=== PATIENT | male | born 1960 | race Caucasian/White ===

== ENCOUNTER 2020-05-01 13:46 | Inpatient (IN) | payer MEDICARE, MEDICAID, SELFPAY ==
[2020-05-01] VITALS (20 sets, daily range): BP systolic 91–237; BP diastolic 65–102; PULSE 67–105; RESP 18–26; TEMP 36.7–37.3; O2SAT 38–99; BMI 33.0; BMI 39.7
--- NOTE | ~2020-05-01 | XR_ITS ---
EXAMINATION: XR CHEST CLINICAL INFORMATION: Hypoxemia COMPARISON: Chest radiographs 05/01/[address] chest 05/02/2020 TECHNIQUE: Portable upright AP x2 views of the chest are obtained. FINDINGS: ET tube is 6 cm above grupo. NG tube is in the gastric fundus. There is bipolar pacemaker. Mild cardiopericardial enlargement is stable. The vascularity is markedly improved from prior chest radiograph 05/01/2020. Superimposed airspace opacities lower zones are also decreased. No significant effusion appreciated. No pneumothorax or pneumomediastinum. XR/XR chest 1V IMPRESSION: 1. ET tube 6 cm above grupo. NG tube in abdomen. 2. Interval moderate decrease in both vascular congestion and pulmonary opacities when compared with prior exam 05/01/2020.
--- NOTE | ~2020-05-01 | CT_ITS ---
EXAMINATION: CT CHEST, ABDOMEN AND PELVIS WITHOUT CONTRAST CLINICAL INFORMATION: Abdominal distention and respiratory failure COMPARISON: Chest radiograph earlier today TECHNIQUE: Multidetector volumetric imaging was performed from the thoracic inlet through the pubic symphysis without IV contrast. Sagittal and coronal reformatted images were obtained on the technologist's workstation. This CT examination was performed using dose optimization techniques as appropriate, variously including the following: *Automated exposure control *Adjustment of mA and/or kV according to patient size (this includes techniques or standardized protocols for targeted exams where dose is matched to indication/reason for exam; i.e. extremities or head) *Use of iterative reconstruction technique DLP: 2283 mGy-cm FINDINGS: CHEST: Lungs and Pleura: Bilateral pleural effusions are present along with bilateral lower lobe collapse/consolidation. Aerated upper lobes appear relatively unremarkable with some mild increased groundglass change which may be secondary to some edema. Mediastinum: The ET tube is in place about 5 cm above the grupo. An NG tube has its tip at the GE junction and should probably be advanced. No significant pericardial effusion is present. A dual lead pacer/defibrillator is present. Chest Wall/Axilla: Unremarkable ABDOMEN/PELVIS: Peritoneal Space: No significant free air or free fluid identified. Liver, Gallbladder, Biliary Tree: The liver is normal in size, shape, and attenuation. No focal hepatic lesion or biliary ductal dilatation is present. The gallbladder is unremarkable with no evidence of radiopaque gallstones, gallbladder wall thickening, or obvious pericholecystic inflammatory changes. Pancreas: Unremarkable Spleen: Unremarkable Adrenal Glands: Unremarkable Kidneys and Ureters: The kidneys are normal in size, shape, and attenuation. No hydronephrosis, hydroureter, or calculi seen. No perinephric stranding. Bladder: Starks catheter is present in the bladder. Gastrointestinal Tract: The small and large bowel are unremarkable. The appendix is unremarkable. Abdominal Wall: No significant hernia is appreciated. Lymph Nodes: No retroperitoneal lymphadenopathy is seen. Vascular: Atherosclerotic changes are present in the aorta and iliofemoral vessels with calcified plaque.. The IVC appears unremarkable. PELVIC VISCERA: Seminal vesicles and prostate appear normal. OSSEUS STRUCTURES: Degenerative changes are present throughout the spine no bony destructive lesions are seen. CT/CT abdomen pelvis wo con IMPRESSION: 1. Bilateral lower lobe collapse and moderate size pleural effusions. Some element of CHF may be present with some groundglass change representing edema. 2. No acute abnormality is seen in the abdomen. 3. ET tube present 5 cm above the grupo. The NG tube is at the GE junction and should be advanced.
--- NOTE | ~2020-05-01 | CT_ITS ---
EXAMINATION: CT ANGIOGRAM OF THE CHEST WITH AND WITHOUT CONTRAST (CT PULMONARY ANGIOGRAM FOR PE) CLINICAL INFORMATION: Reason for Exam rule out pe COMPARISON: 05/02/2020 TECHNIQUE: Prior to contrast administration, noncontrast localization images were obtained. Subsequently, multidetector volumetric imaging was performed from the thoracic inlet to below the diaphragms following the administration of 65 mL Omnipaque 350 intravenous contrast. No contrast reaction reported Sagittal, coronal, and MIP oblique sagittal reformatted images were obtained on the CT workstation, uploaded to PACS, and reviewed. This CT examination was performed using dose optimization techniques as appropriate, variously including the following: *Automated exposure control *Adjustment of mA and/or kV according to patient size (this includes techniques or standardized protocols for targeted exams where dose is matched to indication/reason for exam; i.e. extremities or head) *Use of iterative reconstruction technique Total exam dose-length product 542 mGy-cm FINDINGS: QUALITY OF STUDY/CONTRAST BOLUS: Satisfactory. PULMONARY ARTERIES: No central or segmental pulmonary emboli. THORACIC AORTA: No aneurysm or dissection. LUNG: The central airways are patent. Mild bronchial wall thickening. Mild paraseptal emphysema of the upper lobes. Bibasilar atelectasis. The previous dense bilateral lower lobe consolidation is significantly improved with minimal left basilar consolidation remaining. PLEURA: No pneumothorax. No significant pleural effusion. MEDIASTINUM: Normal heart size. Small pericardial effusion. Coronary artery calcifications are noted. No hilar or mediastinal lymphadenopathy. No evidence of septal bowing or right heart strain. CHEST WALL/AXILLA: No axillary or internal mammary lymphadenopathy. OSSEOUS STRUCTURES: No acute or suspicious osseous abnormality. Mild degenerative changes of the spine. UPPER ABDOMEN: Limited visualization of the upper abdomen suggests wall thickening of the gallbladder. No reflux of contrast into the hepatic veins to suggest elevated right heart pressures. CT/CT angio chest PE protocol IMPRESSION: No pulmonary embolism. Significant improvement of the previous bilateral lower lobe consolidation. Minimal residual left lower lobe consolidation. Bronchial wall thickening can be seen with a small airways process such as asthma or atypical/viral infection. VTE: negative
--- NOTE | ~2020-05-01 | CT_ITS ---
EXAMINATION: CT HEAD WITHOUT CONTRAST CLINICAL INFORMATION: Unresponsive COMPARISON: None. TECHNIQUE: Contiguous axial imaging was performed from the skull base to vertex without intravenous contrast. This CT examination was performed using dose optimization techniques as appropriate, variously including the following: * Automated exposure control * Adjustment of mA and/or kV according to patient size (this includes techniques or standardized protocols for targeted exams where dose is matched to indication/reason for exam; i.e. extremities or head) Use of iterative reconstruction technique DLP: 1116 mGy-cm. FINDINGS: Chronic infarcts of the right frontal lobe extending from the periventricular region, with associated chronic lacunar infarcts of the right basal ganglia. There is no evidence of acute intracranial hemorrhage or territorial infarction. No abnormal mass effect or midline shift is seen. Ham to white matter differentiation is well preserved. No extra-axial fluid collections are identified. No hydrocephalus. Mild ex vacuo dilatation of the right lateral ventricle frontal horn. No significant volume loss. Patchy periventricular and deep white matter hypoattenuation is consistent with mild small vessel ischemic changes. The osseous structures and soft tissues are normal. The mastoid air cells are well aerated. Moderate opacification throughout the paranasal sinuses. CT/CT head/brain wo con IMPRESSION: No acute intracranial pathology. Multiple chronic infarcts in the right frontal lobe and basal ganglia. Moderate paranasal sinus opacification.
--- NOTE | ~2020-05-01 | XR_ITS ---
EXAMINATION: PORTABLE CHEST 1 VIEW CLINICAL INFORMATION: Syncope . COMPARISON: No recent pertinent prior studies are available for comparison. TECHNIQUE: Portable frontal view of the chest was obtained. FINDINGS: Lungs well-expanded. Mild central vascular prominence and increased interstitial changes suggesting mild pulmonary edema. No significant effusion or pneumothorax. Basilar airspace changes could reflect component of atelectasis as well. Cardiac silhouette remains prominent. Dual-lead pacemaker/AICD is noted with lead tips overlying the expected right atrium and right ventricle. No acute bony abnormality. XR/XR chest 1V IMPRESSION: I do not have any prior films available for comparison. There is mild central vascular prominence and increased interstitial/reticular markings. A component of mild pulmonary edema would be difficult to exclude in the acute setting. Clinical correlation and follow-up recommended.
--- NOTE | ~2020-05-01 | XR_ITS ---
EXAMINATION: PORTABLE CHEST 1 VIEW CLINICAL INFORMATION: Unresponsive . COMPARISON: 05/01/2020. TECHNIQUE: Portable frontal view of the chest was obtained. FINDINGS: Worsened central vascular prominence consistent with worsening pulmonary edema. There is increased interstitial and reticular markings now present. No significant effusion. Cardiac silhouette remains prominent. Endotracheal tube tip approximately 5 cm above the grupo. Nasogastric tube below level the diaphragm. Dual-lead pacemaker/AICD is seen with lead tips overlying the right atrium and right ventricle. Overlying pacing pads noted. XR/XR chest 1V IMPRESSION: Worsened central vascular prominence and increased interstitial/reticular markings consistent with worsening pulmonary edema when compared to earlier tonight. Patient is now admitted.
--- NOTE | 2020-05-01 16:29 | ECG_ITS ---
Test Reason : ALLERGIC REACTION Blood Pressure : / mmHG Vent. Rate : 064 BPM Atrial Rate : 064 BPM P-R Int : 156 ms QRS Dur : 110 ms QT Int : 438 ms P-R-T Axes : 021 020 164 degrees QTc Int : 451 ms Normal sinus rhythm Left ventricular hypertrophy with repolarization abnormality Abnormal ECG No previous ECGs available Referred By: John Mejias Electronically Signed By:Jose Luis Salmon
--- NOTE | 2020-05-01 16:31 | ED_ITS ---
HPI - Syncope General Chief Complaint: General Medical Stated Complaint: SYNCOPE POST COVID Time Seen by Provider: 05/01/20 16:29 Source: patient and EMS Mode of arrival: EMS Limitations: no limitations History of Present Illness HPI narrative: 60-year-old male came in by ambulance, patient was scheduled for his COVID vaccination patient received COVID vaccination at 13:00 today, patient was observed at the facility few minutes after patient received a vaccination start feel blurry vision, tingling and numbness and at the tip of his fingers, and diaphoretic, patient after that the remember what happened seen patient had syncopal episode patient was transferred to the emergency department for further evaluation, patient now seen by me about 3 hours after the event patient is asymptomatic walking around in the emergency department would like to go home, patient had a history of coronary artery disease with abnormal cardiac catheterization (report is not available now) but patient declined chest pain or difficulty breathing. As I discussed with the patient it is likely to be vaso vagal episode after rec eiving the COVID vaccination however because the patient's age and history health like to do cardiac work-up to rule out acute cardiac event. patient don't want to stay i spoke with the patient and agreed to stay for work up. Related Data Allergies Allergy/AdvReac Type Severity Reaction Status Date / Time bee pollen [bee stings] Allergy Severe Anaphylaxis Verified 05/03/20 09:16 penicillin G [Penicillin G] Allergy Mild Hives Verified 05/03/20 09:15 Review of Systems Review of Systems: All other systems are reviewed and are negative Constitutional: Reports as per HPI and Reports no additional constitutional complaints Eyes: Reports as per HPI and Reports no additional eye complaints Reports system reviewed and no additional complaints, except as documented Cardiovascular: Reports as per HPI and Reports no additional cardiovascular comp laints Respiratory: Reports as per HPI and Reports no additional respiratory complaints Gastrointestinal: Reports as per HPI and Reports no additional gastrointestinal complaints Genitourinary: Reports no additional female genitourinary complaints Musculoskeletal: Reports no additional musculoskeletal complaints Skin/Breast: Reports system reviewed and no additional complaints, except as docu Psychiatric: Reports no additional psychiatric complaints Endocrine: Reports no additional endocrine complaints Hematologic/Lymphatic: Reports no additional hematologic/lymphatic complaints Allergic/Immunologic: Reports no additional allergic/immunologic complaints Reports system reviewed and no additional complaints, except as documented and Reports Abnormal speech present [facility] Past Medical History Medical History (Updated 05/02/20 @ 17:33 by Macrina Weaver MD) Atrial fibrillation CAD (coronary artery disease) COPD (chronic obstructive pulmonary disease) Diabetes mellitus NSTEMI (non-ST elevated myocardial infarction) Pacemaker Sleep apnea Surgical History (Updated 05/02/20 @ 00:25 by John Mejias) H/O cardiac catheterization Social History Social History (Updated 05/02/20 @ 00:30 by John Mejias) Household Members: None Housing: Other Housing Other:: mobile home Do you presently have visiting nurse or other home services: No Smoking Status: Current every day smoker Tobacco Type: Cigarette Use of substances other than those prescribed or required for medical reasons: No Currently Displaying Signs/Symptoms of Drug Intoxication Withdrawal: No Have you been hit, kicked, punched, or otherwise hurt by someone within the past year? If so, by whom?: No Do you feel safe in your current relationship?: No Current Relationship Is there a partner from a previous relationship who is making you feel unsafe now?: No Are you made to feel afraid or neglected: No Advance Directives: No Advance Directives Information Provided: No Do you have thoughts of harming others: None Do you have a plan to hurt others: No Plan Recently lost weight without trying: No service: Yes Current occupational status: retired Physical Exam Vital Signs: Vital Signs: Last Vital Signs Temp 100.2 F 05/03/20 15:12 Pulse 92 05/03/20 17:24 Resp 20 05/03/20 15:12 BP 173/84 H 05/03/20 17:24 Pulse Ox 91 L 05/03/20 15:12 Body Mass Index 33.0 Vital signs have been reviewed as appeared to be correct. Blood pressure in the high range. Heart rate normal. Respiration rate normal. Temperature normal. Oxygen saturation normal. Appearance: Alert. Oriented X3. No acute distress. Head: Normal external exam. Normocephalic. Atraumatic. No Dodson signs noted. No raccoon eyes noted Eyes: PERRLA. EOMI. Conjunctiva and sclera normal. Eyelids normal. ENT: TM's Normal. Pharynx normal. Uvula midline. Moist mucous membranes. No trismus noted. No drooling noted. No muffled voice noted. Neck: Normal inspection. Neck supple. FROM. No adenopathy. Thyroid Normal. No meningeal signs. No neck mass noted. CVS: Normal heart rate and rhythm. Heart sound normal. No murmurs noted. Pulses normal throughout. Respiratory: No respiratory distress. Painless inspiration. Breath sounds normal. No wheezes/rales/rhonchi noted. Chest nontender. No accessory muscle usage noted or decreased air movement noted. Abdomen: Soft and nontender. Bowel sounds normal in all 4 quadrants. No distention noted. No organomegaly noted. No visible injury noted. Back: No CVA tenderness. Full range of motion noted. Skin: Skin warm and dry. Normal skin color. Normal skin turgor. No rashes/lesions/lacerations noted. Extremities: No lower extremity edema. Extremities exhibit normal range of motion. Extremities nontender. Neuro: Oriented X 3. No motor deficit. No sensory deficit. Reflexes normal. Course Course Course Narrative: Assessment and plan. 60 years old male after getting his 2nd dose of COVID-19 vaccination patient had a syncopal episode, patient in the emergency department had elevated troponin otherwise asymptomatic and was awaiting for 2nd troponin to be drawn, patient insisted to leave against medical advise, patient found in the waiting room with change mental status, patient was brought back to room 15, appear having seizure activity, was postictal unresponsiveness, and urinary incontinence. Reevaluation(s) Reevaluation #1: Patient was moved to room 5, given Ativan seizure activity was stopped, positive urinary incontinence, patient was put on non-rebreather appear cyanotic , ABG is pending, new sets of labs were sent, head CT was ordered, keep monitoring the patient possibly will intubate him. Time: 20:59 Reevaluation #2: Patient was moved to room 5 still unresponsive, patient is hypoxic on non-rebreather, ABG on non-rebreather showed severe metabolic ac idosis with hypercarbia and hypoxemia, patient now is endotracheal intubated please refer to intubation note. Reevaluation #3: Patient is intubated, sedated, oxygenating 100% with intubation, repeat ABG showed significant improvement of respiratory acidosis and hypercarbia with improvement of the hypoxemia, CT head showed no acute intracranial pathology. However if the patient had acute stroke patient is not a good candidate for tPA because of the seizure, and neuro exam is limited due to patient's mental status change. Patient had seizure likely due to severe hypoxia and severe hypercarbia. Difficult intubation due to multiple factorial including short neck and very posterior airway, active vomiting while the intubation. Will consider antibiotic coverage for aspiration pneumonia (given the history of penicillin allergy will start on Zithromax) consider blood cultures/lactic acid. Patient in flash pulmonary edema on x-ray would not try any IV hydration at this point. Patient will be moving to ICU soon. Time: 23:07 Procedures Intubation Time out performed: Yes sedative: Etomidate paralytic: Succinylcholine Laryngoscope: Lopez ET Tube Size: 8 ET Tube Uncuffed: Yes Tube Secured Depth (cm): 22 Tube Secured Location: lips Tube Placement Confirmation: visualized tube passing through cords and equal breath sounds bilaterally Patient Tolerated Procedure: well Intubation Complications: other (Due to secretions and vomiting while intubation multiple intubation trials, successful ventilation with oral airway O2 sat went to 75%.) MDM - Syncope Lab Data Attestation: I reviewed the patient's lab results. Result diagrams: 05/03/20 05:31 05/03/20 05:31 Labs: Lab Results 05/01/20 05/01/20 05/01/20 Range/Units 16:59 16:59 16:59 WBC 8.6 (4.8-10.8) X10*3/uL RBC 5.07 (4.60-5.80) X10*6/uL Hgb 14.8 (14.0-18.0) g/dl Hct 45.2 (42-52) % MCV 89.2 (80-98) fL MCH 29.2 (27.0-33.0) pg MCHC 32.7 (31.0-36.0) g/dl RDW 14.4 (11.0-16.0) % Plt Count 221 (160-400) X10*3/uL MPV 10.6 (9.4-12.4) fL Immature Gran % (Auto) 0.1 (0.0-0.4) % Neut % (Auto) 67.5 (45-73) % Lymph % (Auto) 22.5 (20-40) % [place] % (Auto) 6.5 (2-11) % Eos % (Auto) 2.7 (0-4) % Baso % (Auto) 0.7 (0-2) % Lymph # (Auto) 1.9 (1.2-4.9) X10*3/uL [place] # (Auto) 0.6 (0.1-1.2) X10*3/uL Eos # (Auto) 0.2 (0.0-0.4) X10*3/uL Baso # (Auto) 0.1 (0.0-0.2) X10*3/uL Abs Immat Gran (auto) 0.01 (0.00-0.03) X10*3/uL Absolute Neuts (auto) 5.8 (2.0-8.3) X10*3/uL Absolute Nucleated RBC 0.000 (0.0-0.012) X10*3/uL Nucleated RBC % (auto) 0.0 (0.0-0.2) /100WBC Smear Tech's Comments O2 Saturation % ABG pH at Pt Temp (7.35-7.45) ABG pH (Temp Correct) (7.35-7.45) ABG pCO2 at Pt Temp (32-45) mmHg ABG pCO2 (Temp Corrct (32-45) mmHg ABG pO2 at Pt Temp (83-108) mmHg ABG pO2 (Temp Correct (83-108) ABG HCO3 (22-26) mmol/L ABG Base Excess (Actual) mmol/L Sodium 140 (135-145) mmol/L Potassium 4.7 (3.3-5.1) mmol/L Chloride 107 (96-108) mmol/L Carbon Dioxide 25 (22-29) mmol/L Anion Gap 13 (12-20) BUN 19 H (9-16) mg/dL Creatinine 0.99 (0.5-1.4) mg/dL Estim Creat Clear Calc 93.5 Estimated GFR > 60 Random Glucose 112 (60-115) mg/dL Calcium 9.1 (8.4-10.2) mg/dL Total Bilirubin 0.4 (0.0-1.0) mg/dL Direct Bilirubin 0.2 (0.0-0.5) mg/dL AST 18 (5-37) U/L ALT 16 (0-40) U/L Alkaline Phosphatase 164 H (39-117) U/L Troponin I High Sens 54.5 H (<3.5-35.0) ng/L B-Natriuretic Peptide (<100) pg/mL Total Protein 6.7 (6.5-8.0) g/dL Albumin 4.3 (3.5-5.0) g/dL Lipase 6 L (8-78) U/L 05/01/20 05/01/20 05/01/20 Range/Units 16:59 20:57 20:59 WBC 16.8 H (4.8-10.8) X10*3/uL RBC 5.65 (4.60-5.80) X10*6/uL Hgb 16.9 (14.0-18.0) g/dl Hct 53.8 H (42-52) % MCV 95.2 D (80-98) fL MCH 29.9 (27.0-33.0) pg MCHC 31.4 (31.0-36.0) g/dl RDW 14.3 (11.0-16.0) % Plt Count 245 (160-400) X10*3/uL MPV 10.9 (9.4-12.4) fL Immature Gran % (Auto) 0.3 (0.0-0.4) % Neut % (Auto) 43.0 L (45-73) % Lymph % (Auto) 45.2 H (20-40) % [place] % (Auto) 8.7 (2-11) % Eos % (Auto) 2.1 (0-4) % Baso % (Auto) 0.7 (0-2) % Lymph # (Auto) 7.6 H (1.2-4.9) X10*3/uL [place] # (Auto) 1.5 H (0.1-1.2) X10*3/uL Eos # (Auto) 0.4 (0.0-0.4) X10*3/uL Baso # (Auto) 0.1 (0.0-0.2) X10*3/uL Abs Immat Gran (auto) 0.05 H (0.00-0.03) X10*3/uL Absolute Neuts (auto) 7.2 (2.0-8.3) X10*3/uL Absolute Nucleated RBC 0.000 (0.0-0.012) X10*3/uL Nucleated RBC % (auto) 0.0 (0.0-0.2) /100WBC Smear Tech's Comments VERIFIED O2 Saturation 70.0 % ABG pH at Pt Temp 6.82 L* (7.35-7.45) ABG pH (Temp Correct) 6.82 L* (7.35-7.45) ABG pCO2 at Pt Temp 110 H* (32-45) mmHg ABG pCO2 (Temp Corrct 109 H* (32-45) mmHg ABG pO2 at Pt Temp 64 L (83-108) mmHg ABG pO2 (Temp Correct 63 L (83-108) ABG HCO3 18 L (22-26) mmol/L ABG Base Excess (Actual) -18.8 mmol/L Sodium (135-145) mmol/L Potassium (3.3-5.1) mmol/L Chloride (96-108) mmol/L Carbon Dioxide (22-29) mmol/L Anion Gap (12-20) BUN (9-16) mg/dL Creatinine (0.5-1.4) mg/dL Estim Creat Clear Calc Estimated GFR Random Glucose (60-115) mg/dL Calcium (8.4-10.2) mg/dL Total Bilirubin (0.0-1.0) mg/dL Direct Bilirubin (0.0-0.5) mg/dL AST (5-37) U/L ALT (0-40) U/L Alkaline Phosphatase (39-117) U/L Troponin I High Sens (<3.5-35.0) ng/L B-Natriuretic Peptide 470 H (<100) pg/mL Total Protein (6.5-8.0) g/dL Albumin (3.5-5.0) g/dL Lipase (8-78) U/L 05/01/20 05/01/20 Range/Units 20:59 20:59 WBC (4.8-10.8) X10*3/uL RBC (4.60-5.80) X10*6/uL Hgb (14.0-18.0) g/dl Hct (42-52) % MCV (80-98) fL MCH (27.0-33.0) pg MCHC (31.0-36.0) g/dl RDW (11.0-16.0) % Plt Count (160-400) X10*3/uL MPV (9.4-12.4) fL Immature Gran % (Auto) (0.0-0.4) % Neut % (Auto) (45-73) % Lymph % (Auto) (20-40) % [place] % (Auto) (2-11) % Eos % (Auto) (0-4) % Baso % (Auto) (0-2) % Lymph # (Auto) (1.2-4.9) X10*3/uL [place] # (Auto) (0.1-1.2) X10*3/uL Eos # (Auto) (0.0-0.4) X10*3/uL Baso # (Auto) (0.0-0.2) X10*3/uL Abs Immat Gran (auto) (0.00-0.03) X10*3/uL Absolute Neuts (auto) (2.0-8.3) X10*3/uL Absolute Nucleated RBC (0.0-0.012) X10*3/uL Nucleated RBC % (auto) (0.0-0.2) /100WBC Smear Tech's Comments O2 Saturation % ABG pH at Pt Temp (7.35-7.45) ABG pH (Temp Correct) (7.35-7.45) ABG pCO2 at Pt Temp (32-45) mmHg ABG pCO2 (Temp Corrct (32-45) mmHg ABG pO2 at Pt Temp (83-108) mmHg ABG pO2 (Temp Correct (83-108) ABG HCO3 (22-26) mmol/L ABG Base Excess (Actual) mmol/L Sodium 143 (135-145) mmol/L Potassium 4.6 (3.3-5.1) mmol/L Chloride 106 (96-108) mmol/L Carbon Dioxide 21 L (22-29) mmol/L Anion Gap 21 H (12-20) BUN 19 H (9-16) mg/dL Creatinine 1.34 (0.5-1.4) mg/dL Estim Creat Clear Calc 69.1 Estimated GFR 54 Random Glucose 263 H D (60-115) mg/dL Calcium 9.2 (8.4-10.2) mg/dL Total Bilirubin 0.4 (0.0-1.0) mg/dL Direct Bilirubin < 0.2 (0.0-0.5) mg/dL AST 25 (5-37) U/L ALT 19 (0-40) U/L Alkaline Phosphatase 188 H (39-117) U/L Troponin I High Sens 57.6 H (<3.5-35.0) ng/L B-Natriuretic Peptide (<100) pg/mL Total Protein 7.7 (6.5-8.0) g/dL Albumin 4.7 (3.5-5.0) g/dL Lipase 8 (8-78) U/L Imaging Data CT scan - head: Radiologist's impression: No acute intracranial pathology. Chest x-ray: Radiologist's impression: Worsened central vascular prominence and increased interstitial/reticular markings consistent with worsening pulmonary edema when compared to earlier tonight. Patient is now admitted. Critical Care Time Critical Care Time Critical Care Time: Yes Total Critical Care Time: 60 Attestation: I spent 60 minutes providing critical care service to the patient, this including time spent at the bedside to evaluate the patient, reassess the patient, monitoring vital signs, review labs, and radiographic studies, counseling the patient/family, discussing the case with consultants, disposition the patient. Discharge Plan Discharge Clinical Impression: Acute alteration in mental status, Acute respiratory failure with hypoxia and hypercarbia, Seizure Syncope Qualifiers: Syncope type: unspecified Qualified Code(s): R55 - Syncope and collapse Patient Disposition: Admitted As Inpatient Interventions: Admission Worksheet (ED) Last Done: 05/01/20 23:58 Discharge Date/Time: 05/01/20 23:58
[2020-05-01] MEDS: 0.9 % Sodium Chloride 1,000 ML 999 ML IVCONT ×2 (17:09→21:30)
[2020-05-01 17:24] LABS: MANUAL DIFF FLAG NO
[2020-05-01 17:26] LABS: Basophils Absolute Auto 0.1 X10*3/uL (0.0-0.2); Basophils Percent Auto 0.7 % (0-2); Eosinophils Absolute Auto 0.2 X10*3/uL (0.0-0.4); Eosinophils Percent Auto 2.7 % (0-4); Hematocrit 45.2 % (42-52); Hemoglobin 14.8 g/dl (14.0-18.0); Imm Gran Abs Auto 0.01 X10*3/uL (0.00-0.03); Imm Gran Pct Auto 0.1 % (0.0-0.4); Lymphocytes Absolute Auto 1.9 X10*3/uL (1.2-4.9); Lymphocytes Percent Auto 22.5 % (20-40); Mean Corpuscular HGB Conc 32.7 g/dl (31.0-36.0); Mean Corpuscular Hemoglobin 29.2 pg (27.0-33.0); Mean Corpuscular Volume 89.2 fL (80-98); Mean Platelet Volume 10.6 fL (9.4-12.4); Monocytes Absolute Auto 0.6 X10*3/uL (0.1-1.2); Monocytes Percent Auto 6.5 % (2-11); Neutrophils Absolute Auto 5.8 X10*3/uL (2.0-8.3); Neutrophils Percent Auto 67.5 % (45-73); Platelet Count 221 X10*3/uL (160-400); Red Blood Count 5.07 X10*6/uL (4.60-5.80); Red Cell Distribution Width 14.4 % (11.0-16.0); White Blood Count 8.6 X10*3/uL (4.8-10.8)
[2020-05-01 18:01] LABS: Alanine Aminotransferase 16 U/L (0-40); Albumin Level 4.3 g/dL (3.5-5.0); Alkaline Phosphatase 164 U/L (39-117); Anion Gap 13 (12-20); Aspartate Amino Transferase 18 U/L (5-37); Bilirubin Direct 0.2 mg/dL (0.0-0.5); Bilirubin Total 0.4 mg/dL (0.0-1.0); Blood Urea Nitrogen 19 mg/dL (9-16); Calcium 9.1 mg/dL (8.4-10.2); Carbon Dioxide 25 mmol/L (22-29); Chloride 107 mmol/L (96-108); Creatinine Clr Calc Pharmacy 93.5; Estimated Glomerular Filt Rate > 60; Glucose Random 112 mg/dL (60-115); Lipase 6 U/L (8-78); Potassium 4.7 mmol/L (3.3-5.1); Sodium 140 mmol/L (135-145); Total Protein 6.7 g/dL (6.5-8.0)
[2020-05-01 18:07] LABS: B Type Natriuretic Peptide 470 pg/mL (<100)
[2020-05-01 18:16] LABS: Troponin-I High Sensitivity 54.5 ng/L (<3.5-35.0)
--- NOTE | 2020-05-01 20:53 | ECG_ITS ---
Test Reason : AMS Blood Pressure : / mmHG Vent. Rate : 087 BPM Atrial Rate : 087 BPM P-R Int : 172 ms QRS Dur : 120 ms QT Int : 364 ms P-R-T Axes : 052 037 167 degrees QTc Int : 438 ms Normal sinus rhythm Possible Left atrial enlargement Left ventricular hypertrophy with QRS widening and repolarization abnormality Cannot rule out Inferior infarct , age undetermined Abnormal ECG When compared with ECG of 01-MAY-2020 16:47, ST now depressed in Anterior leads Referred By: Louisa Lovell Electronically Signed By:
[2020-05-01] MEDS: LORazepam 2 MG/ML VIAL 1 MG IVPUSH (20:55)
[2020-05-01] MEDS: Etomidate 20 MG/10 ML VIAL IVPUSH (21:02)
[2020-05-01] MEDS: Succinylcholine Chloride 200 MG/10 ML VIAL 100 MG IVPUSH (21:02)
[2020-05-01 21:06] LABS: ABG Base Excess -18.8 mmol/L; ABG HCO3 18 mmol/L (22-26); ABG pCO2 110 mmHg (32-45); ABG pCO2 TC 109 mmHg (32-45); ABG pH 6.82 (7.35-7.45); ABG pH TC 6.82 (7.35-7.45); ABG pO2 64 mmHg (83-108); ABG pO2 TC 63 (83-108)
[2020-05-01 21:06] LABS: ABG Refer to POC result
[2020-05-01 21:07] LABS: Basophils Absolute Auto 0.1 X10*3/uL (0.0-0.2); Basophils Percent Auto 0.7 % (0-2); Eosinophils Absolute Auto 0.4 X10*3/uL (0.0-0.4); Eosinophils Percent Auto 2.1 % (0-4); Hematocrit 53.8 % (42-52); Hemoglobin 16.9 g/dl (14.0-18.0); Imm Gran Abs Auto 0.05 X10*3/uL (0.00-0.03); Imm Gran Pct Auto 0.3 % (0.0-0.4); Lymphocytes Percent Auto 45.2 % (20-40); MANUAL DIFF FLAG SCAN; Mean Corpuscular HGB Conc 31.4 g/dl (31.0-36.0); Mean Corpuscular Hemoglobin 29.9 pg (27.0-33.0); Mean Corpuscular Volume 95.2 fL (80-98); Mean Platelet Volume 10.9 fL (9.4-12.4); Monocytes Absolute Auto 1.5 X10*3/uL (0.1-1.2); Monocytes Percent Auto 8.7 % (2-11); Neutrophils Absolute Auto 7.2 X10*3/uL (2.0-8.3); Platelet Count 245 X10*3/uL (160-400); Red Blood Count 5.65 X10*6/uL (4.60-5.80); Red Cell Distribution Width 14.3 % (11.0-16.0); SCAN SMEAR FLAG 1; White Blood Count 16.8 X10*3/uL (4.8-10.8)
[2020-05-01 21:14] LABS: Lymphocytes Absolute Auto 7.6 X10*3/uL (1.2-4.9)
[2020-05-01] MEDS: propofoL 1,000 MG/100 ML VIAL 12.52 MG IVCONT (21:20)
--- NOTE | 2020-05-01 21:20 | PC.NURSE ---
Propofol drip initiated at 21:20 on 05/01/20. Pt is intubated. Propofol infusing via IV access in left arm at 20mg/kg. Pt is hypertensive 240s/100s, abdomen is grossly distended.
[2020-05-01 21:46] LABS: Alanine Aminotransferase 19 U/L (0-40); Albumin Level 4.7 g/dL (3.5-5.0); Alkaline Phosphatase 188 U/L (39-117); Anion Gap 21 (12-20); Aspartate Amino Transferase 25 U/L (5-37); Bilirubin Direct < 0.2 mg/dL (0.0-0.5); Bilirubin Total 0.4 mg/dL (0.0-1.0); Blood Urea Nitrogen 19 mg/dL (9-16); Calcium 9.2 mg/dL (8.4-10.2); Carbon Dioxide 21 mmol/L (22-29); Chloride 106 mmol/L (96-108); Creatinine Clr Calc Pharmacy 69.1; Estimated Glomerular Filt Rate 54; Glucose Random 263 mg/dL (60-115); Lipase 8 U/L (8-78); Potassium 4.6 mmol/L (3.3-5.1); SLIDE REVIEW VERIFIED; Sodium 143 mmol/L (135-145); Total Protein 7.7 g/dL (6.5-8.0)
[2020-05-01 21:47] LABS: Troponin-I High Sensitivity 57.6 ng/L (<3.5-35.0)
[2020-05-01 22:21] LABS: COVID-19 Test Negative (Negative)
[2020-05-01] MEDS: fentaNYL citrate/PF 100 MCG/2 ML VIAL 50 MCG IVPUSH (22:48)
--- NOTE | 2020-05-01 22:53 | PC.NURSE ---
Patient was yelling at this production underwriter when I walked in the room and was in process of pulling out his IV. He stated I am leaving this place because I am sick of being here. I attempted to convince patient to stay and was preparing to draw his second troponin but he was yelling that he wanted the papers. IV pulled and I went to get the ama form. Patient began bleeding from IV site and another nurse was holding pressure. Patient was becoming short of breath but refused to stay despite staff trying to convince him to stay. Patient was walk out to waiting room by RN and ED provider also came up and told patient he should probably stay but patient refused. Patient had calmed down when he got out to waiting room and was speaking in full sentences. Charge nurse received a call stating patient was out in waiting room and wanted to come back into ER. When this production underwriter went out to get him, patient was very diaphoretic and could not catch his breath even with a non rebreather. I helped patient get undressed and stepped out of room to grab a towel so that I could wipe his chest and place him on surveillance monitor. When I walked back into room patient was strewn on bed with hand to his face and shaking. Patient not responding to sternal rub and I called for help.
[2020-05-01 22:55] LABS: ABG HCO3 22 mmol/L (22-26); ABG pCO2 67 mmHg (32-45); ABG pCO2 TC 67 mmHg (32-45); ABG pH 7.12 (7.35-7.45); ABG pH TC 7.12 (7.35-7.45); ABG pO2 159 mmHg (83-108); ABG pO2 TC 159 (83-108)
[2020-05-01] MEDS: fentaNYL citrate/NS 1,000 MCG/100 ML PLAST..BAG 2.5 MCG IVCONT (22:57)
[2020-05-01] MEDS: Furosemide 100 MG/10 ML VIAL 60 MG IVPUSH (22:58)
[2020-05-01 23:06] LABS: ABG Refer to POC result
[2020-05-01 23:08] LABS: Lactic Acid 1.7 mmol/L (0.5-2.0)
--- NOTE | 2020-05-01 23:20 | PM.CCHP ---
History of Present Illness Date of Service: 05/01/20 Chief Complaint: Syncope The patient is a 70-year-old male with a past medical history of coronary artery disease, NSTEMI on status post cardiac catheterization/PCI with no stent, atrial fibrillation, diabetes mellitus, COPD, sleep apnea, obesity, and tobacco dependence who presented via EMS to the emergency room today after syncopal episode post COVID vaccination. Initially in the emergency room patient reported that he fell his vision was blurry, tingling and numbness on the tips of his finger and became diaphoretic post COVID vaccination around 1300. Vitals initially stable. X-ray initially no significant acute finding. Only abnormal laboratory data it was noted to have troponin elevated to 54.5. He denied chest pain at this time. The patient decided to sign himself AMA from the emergency room, but while in the waiting room he became altered, having seizure-like activitie and incontinence. He received Ativan, with no return of mentation. Placed on non-rebreather, but required emergent intubation for air protection and severe hypoxemia. ABGs: 6.82/110/64/18/-18.8. Laboratory data significant for WBC increased from 8.6 from 16.8, BUM 19, Creatinine 1.36. Second troponin 57.6. Imaging 2nd x-ray showed worsening pulmonary edema. Head CT: chronic infarct in the right frontal lobe and basal ganglia Review of Systems Review of Systems: Unable to do patient is intubated [facility] Past Medical History Medical History (Updated 05/02/20 @ 00:27 by John Mejias) Atrial fibrillation CAD (coronary artery disease) COPD (chronic obstructive pulmonary disease) Diabetes mellitus NSTEMI (non-ST elevated myocardial infarction) Pacemaker Sleep apnea Family History Family history: reviewed and not pertinent Surgical History Surgical History (Updated 05/02/20 @ 00:25 by John Mejias) H/O cardiac catheterization Social History Social History (Updated 05/02/20 @ 00:30 by John Mejias) Smoking Status: Current every day smoker Tobacco Type: Cigarette Advance Directives: No Advance Directives Information Provided: No Meds Allergies Allergy/AdvReac Type Severity Reaction Status Date / Time penicillin G [Penicillin G] Allergy Unknown UNKNOWN Unverified 11/10/19 17:55 Active Medications: Current Medications Generic Name Dose Route Start Last Admin Trade Name Stevan PRN Reason Stop Dose Admin Chlorhexidine Gluconate 15 ml 05/01/20 23:00 Chlorhexidine Gluc Oral Rinse 15 Ml Mouthwash BUCCAL Q8H [facility] Heparin Sodium (Porcine) 5,000 unit 05/01/20 23:00 Heparin Sodium,Porcine 5,000 Unit/Ml Vial SUBCUT Q8H [facility] Propofol 1,000 mg in 100 mls @ 0 mls/hr 05/01/20 21:30 05/01/20 22:29 Diprivan IVCONT 50 mcg/kg/min .Q0M NIALL 31.3 mls/hr Titration Protocol Per Protocol Fentanyl 1,000 mcg in 100 mls @ 0 mls/hr 05/01/20 22:45 05/01/20 22:57 Sublimaze/Ns IVCONT 25 mcg/hr .Q0M NIALL 2.5 mls/hr Administration Protocol Per Protocol Levofloxacin 750 mg in 150 mls @ 100 mls/hr 05/01/20 23:00 Levaquin IV Q24H [facility] Pantoprazole Sodium 40 mg 05/02/20 06:30 Pantoprazole Sodium 40 Mg/10 Ml Vial IVPUSH DAILY@0630 [facility] Physical Exam Vital Signs: Vital Signs: Last Vital Signs Temp 98.0 F 05/01/20 17:05 Pulse 96 05/01/20 22:57 Resp 26 H 05/01/20 22:57 BP 102/65 05/01/20 22:57 Pulse Ox 93 05/01/20 17:05 Body Mass Index 39.7 Const: Other: INTUBATED, SEDATED Eyes: Pupils: Equal, round and reactive pupils present Neck: Neck: Yes supple Resp: Effort & Inspection: symmetric chest movement Auscultation: rhonchi Cardio: Other: NORMAL SINUS RHYTHM Jugular venous distension: no JVD Heart sounds: S1 normal heart sound present and S2 normal heart sound present Peripheral pulses: Peripheral pulses 2+ throughout GI: Other: Abdomen severely distended, firm. OG tube with serosanguineous secretion Auscultation: normal bowel sounds Skin: General skin exam: dry skin Neuro: Cranial nerves: Yes Equal, round and reactive pupils present Results Labs CBC and Chem 7: 05/01/20 20:59 05/01/20 20:59 Labs: Laboratory Results - last 24 hr 05/01/20 05/01/20 05/01/20 16:59 16:59 16:59 MCV 89.2 MCH 29.2 MCHC 32.7 RDW 14.4 Plt Count 221 MPV 10.6 Immature Gran % (Auto) 0.1 Neut % (Auto) 67.5 Lymph % (Auto) 22.5 Craven % (Auto) 6.5 Eos % (Auto) 2.7 Baso % (Auto) 0.7 Lymph # (Auto) 1.9 Craven # (Auto) 0.6 Eos # (Auto) 0.2 Baso # (Auto) 0.1 Abs Immat Gran (auto) 0.01 Absolute Neuts (auto) 5.8 Absolute Nucleated RBC 0.000 Nucleated RBC % (auto) 0.0 Smear Tech's Comments O2 Saturation ABG pH at Pt Temp ABG pH (Temp Correct) ABG pCO2 at Pt Temp ABG pCO2 (Temp Corrct ABG pO2 at Pt Temp ABG pO2 (Temp Correct ABG HCO3 ABG Base Excess (Actual) Anion Gap 13 Estim Creat Clear Calc 93.5 Estimated GFR > 60 Random Glucose 112 Lactic Acid Calcium 9.1 Total Bilirubin 0.4 Direct Bilirubin 0.2 AST 18 ALT 16 Alkaline Phosphatase 164 H Troponin I High Sens 54.5 H B-Natriuretic Peptide Total Protein 6.7 Albumin 4.3 Lipase 6 L COVID-19 (MEY) COVID-19 Clin Com 05/01/20 05/01/20 05/01/20 16:59 20:57 20:59 MCV 95.2 D MCH 29.9 MCHC 31.4 RDW 14.3 Plt Count 245 MPV 10.9 Immature Gran % (Auto) 0.3 Neut % (Auto) 43.0 L Lymph % (Auto) 45.2 H Craven % (Auto) 8.7 Eos % (Auto) 2.1 Baso % (Auto) 0.7 Lymph # (Auto) 7.6 H Craven # (Auto) 1.5 H Eos # (Auto) 0.4 Baso # (Auto) 0.1 Abs Immat Gran (auto) 0.05 H Absolute Neuts (auto) 7.2 Absolute Nucleated RBC 0.000 Nucleated RBC % (auto) 0.0 Smear Tech's Comments VERIFIED O2 Saturation 70.0 ABG pH at Pt Temp 6.82 L* ABG pH (Temp Correct) 6.82 L* ABG pCO2 at Pt Temp 110 H* ABG pCO2 (Temp Corrct 109 H* ABG pO2 at Pt Temp 64 L ABG pO2 (Temp Correct 63 L ABG HCO3 18 L ABG Base Excess (Actual) -18.8 Anion Gap Estim Creat Clear Calc Estimated GFR Random Glucose Lactic Acid Calcium Total Bilirubin Direct Bilirubin AST ALT Alkaline Phosphatase Troponin I High Sens B-Natriuretic Peptide 470 H Total Protein Albumin Lipase COVID-19 (MEY) COVID-19 Clin Com 05/01/20 05/01/20 05/01/20 20:59 20:59 21:52 MCV MCH MCHC RDW Plt Count MPV Immature Gran % (Auto) Neut % (Auto) Lymph % (Auto) Craven % (Auto) Eos % (Auto) Baso % (Auto) Lymph # (Auto) Craven # (Auto) Eos # (Auto) Baso # (Auto) Abs Immat Gran (auto) Absolute Neuts (auto) Absolute Nucleated RBC Nucleated RBC % (auto) Smear Tech's Comments O2 Saturation ABG pH at Pt Temp ABG pH (Temp Correct) ABG pCO2 at Pt Temp ABG pCO2 (Temp Corrct ABG pO2 at Pt Temp ABG pO2 (Temp Correct ABG HCO3 ABG Base Excess (Actual) Anion Gap 21 H Estim Creat Clear Calc 69.1 Estimated GFR 54 Random Glucose 263 H D Lactic Acid Calcium 9.2 Total Bilirubin 0.4 Direct Bilirubin < 0.2 AST 25 ALT 19 Alkaline Phosphatase 188 H Troponin I High Sens 57.6 H B-Natriuretic Peptide Total Protein 7.7 Albumin 4.7 Lipase 8 COVID-19 (MEY) Negative COVID-19 Clin Com See Note 05/01/20 05/01/20 22:33 22:45 MCV MCH MCHC RDW Plt Count MPV Immature Gran % (Auto) Neut % (Auto) Lymph % (Auto) Craven % (Auto) Eos % (Auto) Baso % (Auto) Lymph # (Auto) Craven # (Auto) Eos # (Auto) Baso # (Auto) Abs Immat Gran (auto) Absolute Neuts (auto) Absolute Nucleated RBC Nucleated RBC % (auto) Smear Tech's Comments O2 Saturation 98.0 ABG pH at Pt Temp 7.12 L* ABG pH (Temp Correct) 7.12 L* ABG pCO2 at Pt Temp 67 H* ABG pCO2 (Temp Corrct 67 H* ABG pO2 at Pt Temp 159 H ABG pO2 (Temp Correct 159 H ABG HCO3 22 ABG Base Excess (Actual) -8.0 Anion Gap Estim Creat Clear Calc Estimated GFR Random Glucose Lactic Acid 1.7 Calcium Total Bilirubin Direct Bilirubin AST ALT Alkaline Phosphatase Troponin I High Sens B-Natriuretic Peptide Total Protein Albumin Lipase COVID-19 (MEY) COVID-19 Clin Com Imaging Radiologist's Impressions: Impressions Chest X-Ray 05/01/20 16:29 IMPRESSION: I do not have any prior films available for comparison. There is mild central vascular prominence and increased interstitial/reticular markings. A component of mild pulmonary edema would be difficult to exclude in the acute setting. Clinical correlation and follow-up recommended. Chest X-Ray 05/01/20 20:53 IMPRESSION: Worsened central vascular prominence and increased interstitial/reticular markings consistent with worsening pulmonary edema when compared to earlier tonight. Patient is now admitted. Head CT 05/01/20 20:53 IMPRESSION: No acute intracranial pathology. Multiple chronic infarcts in the right frontal lobe and basal ganglia. Moderate paranasal sinus opacification. Assessment and Plan (1) Acute respiratory failure with hypoxia and hypercarbia: Status: Acute Neuro: AMS/seizure: Patient had seizure activity in ED. Head CT with no acute finding. He was severely acidotic, hypoxic and hypercapnic. He is on propofol for sedation, Will continue to closely monitor for seizure activity Cardiac: Syncope- prior to change in mental status, patient was back to baseline. Syncopal episode from earlier likely related to COVID vaccination. We will repeat the EKG when arrived to ICU. Hypotension: this is likely due to sedation for intubation. Not requiring pressors at this time. Pulmonary: Acute hypoxic hypercapnic respiratory failure requiring endotracheal intubation- 2nd x-ray shows severe pulmonary edema, he also likely aspirated from vomiting during intubation/seizure activity. Will begin diuresing as well start antibiotics. Will obtain CT of the chest. cont antibiotics. Will wean off vent when appropriate. Renal: No acute issues GI: Abdomen is severely distended and firm. OG tube with serosanguineous drainage. Will obtain abdomen CT. Endo: No acute issues ID: Leukocytosis likely due to Aspiration event- Cont Levaquin. Heme/Onc: No acute issues. Psych: No acute issues. Miscellaneous: No acute issues Prophylaxis Heparin, PPI Diet: NPO CODE: FULL Critical care time: X90 Minutes of critical care time (2) Acute alteration in mental status: Status: Acute (3) Seizure: Status: Acute (4) COPD (chronic obstructive pulmonary disease): Status: Acute (5) Syncope: Qualifiers: Syncope type: unspecified Qualified Code(s): R55 - Syncope and collapse Status: Acute (6) Aspiration into airway: Status: Acute
[2020-05-02] VITALS (31 sets, daily range): BP systolic 89–134; BP diastolic 53–81; PULSE 50–103; RESP 26–28; TEMP 35.2–37.9; O2SAT 91–100; BMI 36.6; BMI 37.0
--- NOTE | 2020-05-02 | ECG_ITS ---
Test Reason : ST DEPRESSIONS Blood Pressure : / mmHG Vent. Rate : 096 BPM Atrial Rate : 096 BPM P-R Int : 098 ms QRS Dur : 108 ms QT Int : 388 ms P-R-T Axes : 040 034 161 degrees QTc Int : 490 ms Sinus rhythm with short DE ST & T wave abnormality, consider anterolateral ischemia Prolonged QT Abnormal ECG When compared to the previous EKG of No significant changes seen Referred By: Cristobal Macdonald Electronically Signed By:Jose Luis Salmon
--- NOTE | 2020-05-02 | ECG_ITS ---
Test Reason : AMS Blood Pressure : / mmHG Vent. Rate : 095 BPM Atrial Rate : 095 BPM P-R Int : 176 ms QRS Dur : 118 ms QT Int : 358 ms P-R-T Axes : 046 036 169 degrees QTc Int : 449 ms Normal sinus rhythm Possible Left atrial enlargement Left ventricular hypertrophy with QRS widening and repolarization abnormality Abnormal ECG When compared with ECG of 01-MAY-2020 21:22, No significant change was found Referred By: John Mejias Electronically Signed By:Jose Luis Salmon
--- NOTE | 2020-05-02 00:23 | PC.NURSE ---
Late entry: Pt arrived to room 4 from bed 15 at approximately 2100. patient was difficult intubation. Pt intubated at 28cm at lip with 8.o tube. Pt's abdomen was extremely distended. approximately 150ml sero sangious fluid taken from NG tube. Medicated per emar and written paperwork. IV access: 20g L AC, 18g rt bicept. 18g right hand. Infusing well. Soft restraints applied. Paperwork in chart. Copious secretions suctioned from ET tube and airway. All blood tinged but mostly clear. Medical Stenographer BRITT aware.
[2020-05-02] MEDS: propofoL 1,000 MG/100 ML VIAL 31.3 MG IVCONT ×2 (00:36→08:20)
[2020-05-02] MEDS: Heparin Sodium,Porcine 5,000 UNIT/ML VIAL 5000 UNIT SUBCUT ×3 (00:37→15:27)
[2020-05-02] MEDS: levoFLOXacin/D5W 750 MG/150 ML PIGGYBACK 100 MG IV (00:37)
[2020-05-02] MEDS: Chlorhexidine Gluc Oral Rinse 15 ML MOUTHWASH BUCCAL ×3 (00:37→15:27)
[2020-05-02 04:48] LABS: VBG Base Excess -3.7 mmol/L; VBG HCO3 25 mmol/L (22-26); VBG pCO2 65 mmHg; VBG pO2 64 mmHg
[2020-05-02] MEDS: propofoL 1,000 MG/100 ML VIAL 18.78 MG IVCONT (05:29)
[2020-05-02] MEDS: Pantoprazole Sodium 40 MG/10 ML VIAL IVPUSH (05:32)
[2020-05-02 05:51] LABS: MANUAL DIFF FLAG NO
[2020-05-02 05:53] LABS: Basophils Percent Auto 0.3 % (0-2); Eosinophils Absolute Auto 0.1 X10*3/uL (0.0-0.4); Eosinophils Percent Auto 0.4 % (0-4); Hematocrit 46.3 % (42-52); Hemoglobin 14.6 g/dl (14.0-18.0); Imm Gran Abs Auto 0.05 X10*3/uL (0.00-0.03); Imm Gran Pct Auto 0.4 % (0.0-0.4); Lymphocytes Absolute Auto 1.6 X10*3/uL (1.2-4.9); Lymphocytes Percent Auto 11.5 % (20-40); Mean Corpuscular HGB Conc 31.5 g/dl (31.0-36.0); Mean Corpuscular Hemoglobin 29.1 pg (27.0-33.0); Mean Corpuscular Volume 92.4 fL (80-98); Mean Platelet Volume 10.7 fL (9.4-12.4); Monocytes Absolute Auto 1.3 X10*3/uL (0.1-1.2); Monocytes Percent Auto 9.5 % (2-11); Neutrophils Percent Auto 77.9 % (45-73); Platelet Count 179 X10*3/uL (160-400); Red Blood Count 5.01 X10*6/uL (4.60-5.80); Red Cell Distribution Width 14.4 % (11.0-16.0); White Blood Count 14.1 X10*3/uL (4.8-10.8)
--- NOTE | 2020-05-02 06:10 | PC.NURSE ---
ADMIT TO 254-1 APPROX 1AM...TUBED/VENTED...PROPOFOL 50 MCG/KG/MIN & FENTANYL 75 MCG/HR AT ADMISSION....SEDATE/SYNCHRONOUS WITH VCV/AC SETTINGS...SAO2 1005 ON FIO2 100%...ON ARRIVAL SBP 87-88---CORE TEMP 95.4---CHAMPAGNE WITH MARGINAL OUTPUT....PASSIVELY RE-WARMED OVERNIGHT...TEMP CURRENTLY 97.3...SBP IMPROVED TO 110'S-120'S...CHAMPAGNE OUTPUT IMPROVED OVERNIGHT...PROPOFOL WENED TO 30 MCG/KG/HR AND FENTANYL TO 25 MCG/HR...NSR TO ATRIAL/AV PACED RHYTHM..SMALL STAGE 2 ULCERS TO COCCYX AND INNER GLUTEAL FOLD--SEE PHOTO
[2020-05-02 06:31] LABS: Venous Blood Gas Refer to POC result
[2020-05-02 06:31] LABS: Venous Blood Gas Refer to POC result
[2020-05-02 07:07] LABS: Alanine Aminotransferase 18 U/L (0-40); Albumin Level 3.9 g/dL (3.5-5.0); Alkaline Phosphatase 154 U/L (39-117); Anion Gap 17 (12-20); Aspartate Amino Transferase 24 U/L (5-37); Bilirubin Total 0.5 mg/dL (0.0-1.0); Blood Urea Nitrogen 24 mg/dL (9-16); Calcium 8.4 mg/dL (8.4-10.2); Carbon Dioxide 23 mmol/L (22-29); Chloride 105 mmol/L (96-108); Creatinine Clr Calc Pharmacy 72.3; Estimated Glomerular Filt Rate 54; Glucose Random 129 mg/dL (60-115); Phosphorus 4.9 mg/dL (2.7-4.5); Potassium 4.9 mmol/L (3.3-5.1); Sodium 140 mmol/L (135-145); Total Protein 6.1 g/dL (6.5-8.0)
[2020-05-02 07:32] LABS: VBG HCO3 21 mmol/L (22-26); VBG pCO2 41 mmHg; VBG pH 7.32 (7.32-7.43); VBG pO2 38 mmHg
[2020-05-02 08:29] LABS: VBG HCO3 21 mmol/L (22-26); VBG pCO2 41 mmHg; VBG pH 7.32 (7.32-7.43); VBG pO2 38 mmHg
--- NOTE | 2020-05-02 09:05 | P.CDIC_ITS ---
CDI Concurrent Query Service Date: 05/02/20 Documentation Clarification: Please clarify if you are treating a proba ble/suspected/likely or confirmed: Aspiration pneumonia (txt, rule out) Aspiration pneumonitis Please specify if known or other Provider Response: Other Other Diagnosis: Aspiration pneumonia versus aspiration pneumonitis PLEASE DO NOT DELETE/MODIFY EXISTING CONTENT Additional information is needed in order to code to the highest accuracy and appropriate Severity of Illness (SOI). Please clarify the information noted below in your progress notes and discharge summary. Risk Factors/Clinical Indicators/Treatments ED: will consider antibiotic coverage for aspiration pneumonia, patient received Covid vaccination, blurry, numbness, tingling, syncope, brought to ED. Dx - aspiration into airway, acute hypoxic respiratory failure likely aspirated from vomiting during intubation/seizure activity, start antibiotics, emergent intubation for air protection - Zithromax ICU admit. CDS: Selene Feldman CCS, CDIS Contact Number: [phone] Please Review the information above and exercise your independent professional judgment in responding to the query. If you concur, pleas document in the PROGRESS NOTES and DISCHARGE SUMMARY. If you do not agree with the query, please document in the query above. THIS QUERY IS PART OF THE PERMANENT MEDICAL RECORD
[2020-05-02] MEDS: propofoL 1,000 MG/100 ML VIAL 25.04 MG IVCONT ×4 (10:47→22:00)
[2020-05-02 11:54] LABS: Glucose, Whole Blood 120 mg/dL (60-115)
--- NOTE | 2020-05-02 16:14 | MHC.CM.PN ---
Patient currently intubated/vented in ICU. Patient had his 1st Pfizer vaccine yesterday at the [place] [facility]. He experienced a syncopal episode with some hand numbness and was transported to [facility]. He left from the ER AMA, went to the waiting room to call a friend to order picker/assembler his truck and had another syncopal episode. He was brought back into the ER and due to resp issues, needed to be intubated. Spoke with patient's sig other, [place] via telephone at [phone]. Patient lives at home alone, ambulates independently and had no services prior to coming to the hospital. PCP verified. No copies of a HCP or MLOST could be found at [facility], or the [place]. IMM explained and sent via certified mail. Continue to monitor for d/c needs.
--- NOTE | 2020-05-02 16:44 | P.PNCC_ITS ---
Subjective Subjective Date of Service: 05/02/20 Interval History: 60-year-old gentleman with underlying history of coronary artery disease status post NSTEMI in March of 2019, AFib, diabetes mellitus, COPD, sleep apnea, obesity admitted on 05/01/2020 after development of alteration of mental status, seizure, pulmonary aspiration, and acute hypoxic respiratory failure shortly after the 1st dose of COVID-19 Pfizer vaccine. Patient emergently intubated in the emergency room (difficult intubation), had CT head obtained that showed no acute infarcts, and was transferred to intensive care unit. No events overnight. Copious in-line pulmonary secretions overnight and this a.m. Physical Exam Vital Signs: Vital Signs: Last Vital Signs Temp 100 F 05/02/20 16:00 Pulse 94 05/02/20 16:00 Resp 26 H 05/02/20 16:00 BP 114/69 05/02/20 16:00 Pulse Ox 92 05/02/20 16:00 Body Mass Index 37.0 Const: General: no acute distress and other (Sedated on the vent) Eyes: Sclerae: sclerae normal EOM: EOMs intact bilaterally Neck: Neck: Yes no lymphadenopathy, Yes trachea midline and Yes supple Resp: Auscultation: crackles (Bibasilar) Cardio: Rate: regular rate Rhythm: regular rhythm Heart sounds: no gallops, no murmurs and no rubs GI: Palpation (GI): Soft to palpation and Other GI palpation findings present ( Nontender) Auscultation: normal bowel sounds Extrem: General: No clubbing, No cyanosis and Yes edema (1+ bilateral) Objective Data Labs CBC & Chem 7: 05/02/20 05:30 05/02/20 05:30 Labs: Laboratory Results - last 24 hr 05/01/20 05/01/20 05/01/20 16:59 16:59 16:59 WBC 8.6 RBC 5.07 Hgb 14.8 Hct 45.2 MCV 89.2 MCH 29.2 MCHC 32.7 RDW 14.4 Plt Count 221 MPV 10.6 Immature Gran % (Auto) 0.1 Neut % (Auto) 67.5 Lymph % (Auto) 22.5 Clarke % (Auto) 6.5 Eos % (Auto) 2.7 Baso % (Auto) 0.7 Lymph # (Auto) 1.9 Clarke # (Auto) 0.6 Eos # (Auto) 0.2 Baso # (Auto) 0.1 Abs Immat Gran (auto) 0.01 Absolute Neuts (auto) 5.8 Absolute Nucleated RBC 0.000 Nucleated RBC % (auto) 0.0 Smear Tech's Comments O2 Saturation ABG pH at Pt Temp ABG pH (Temp Correct) ABG pCO2 at Pt Temp ABG pCO2 (Temp Corrct ABG pO2 at Pt Temp ABG pO2 (Temp Correct ABG HCO3 ABG Base Excess (Actual) VBG pH VBG pCO2 VBG pO2 VBG HCO3 VBG O2 Saturation VBG Base Excess Sodium 140 Potassium 4.7 Chloride 107 Carbon Dioxide 25 Anion Gap 13 BUN 19 H Creatinine 0.99 Estim Creat Clear Calc 93.5 Estimated GFR > 60 POC Glucose Random Glucose 112 Lactic Acid Calcium 9.1 Phosphorus Magnesium Total Bilirubin 0.4 Direct Bilirubin 0.2 AST 18 ALT 16 Alkaline Phosphatase 164 H Troponin I High Sens 54.5 H B-Natriuretic Peptide Total Protein 6.7 Albumin 4.3 Lipase 6 L COVID-19 (MEY) COVID-19 Clin Com 05/01/20 05/01/20 05/01/20 16:59 20:57 20:59 WBC 16.8 H RBC 5.65 Hgb 16.9 Hct 53.8 H MCV 95.2 D MCH 29.9 MCHC 31.4 RDW 14.3 Plt Count 245 MPV 10.9 Immature Gran % (Auto) 0.3 Neut % (Auto) 43.0 L Lymph % (Auto) 45.2 H Clarke % (Auto) 8.7 Eos % (Auto) 2.1 Baso % (Auto) 0.7 Lymph # (Auto) 7.6 H Clarke # (Auto) 1.5 H Eos # (Auto) 0.4 Baso # (Auto) 0.1 Abs Immat Gran (auto) 0.05 H Absolute Neuts (auto) 7.2 Absolute Nucleated RBC 0.000 Nucleated RBC % (auto) 0.0 Smear Tech's Comments VERIFIED O2 Saturation 70.0 ABG pH at Pt Temp 6.82 L* ABG pH (Temp Correct) 6.82 L* ABG pCO2 at Pt Temp 110 H* ABG pCO2 (Temp Corrct 109 H* ABG pO2 at Pt Temp 64 L ABG pO2 (Temp Correct 63 L ABG HCO3 18 L ABG Base Excess (Actual) -18.8 VBG pH VBG pCO2 VBG pO2 VBG HCO3 VBG O2 Saturation VBG Base Excess Sodium Potassium Chloride Carbon Dioxide Anion Gap BUN Creatinine Estim Creat Clear Calc Estimated GFR POC Glucose Random Glucose Lactic Acid Calcium Phosphorus Magnesium Total Bilirubin Direct Bilirubin AST ALT Alkaline Phosphatase Troponin I High Sens B-Natriuretic Peptide 470 H Total Protein Albumin Lipase COVID-19 (MEY) COVID-19 Clin Com 05/01/20 05/01/20 05/01/20 20:59 20:59 21:52 WBC RBC Hgb Hct MCV MCH MCHC RDW Plt Count MPV Immature Gran % (Auto) Neut % (Auto) Lymph % (Auto) Clarke % (Auto) Eos % (Auto) Baso % (Auto) Lymph # (Auto) Clarke # (Auto) Eos # (Auto) Baso # (Auto) Abs Immat Gran (auto) Absolute Neuts (auto) Absolute Nucleated RBC Nucleated RBC % (auto) Smear Tech's Comments O2 Saturation ABG pH at Pt Temp ABG pH (Temp Correct) ABG pCO2 at Pt Temp ABG pCO2 (Temp Corrct ABG pO2 at Pt Temp ABG pO2 (Temp Correct ABG HCO3 ABG Base Excess (Actual) VBG pH VBG pCO2 VBG pO2 VBG HCO3 VBG O2 Saturation VBG Base Excess Sodium 143 Potassium 4.6 Chloride 106 Carbon Dioxide 21 L Anion Gap 21 H BUN 19 H Creatinine 1.34 Estim Creat Clear Calc 69.1 Estimated GFR 54 POC Glucose Random Glucose 263 H D Lactic Acid Calcium 9.2 Phosphorus Magnesium Total Bilirubin 0.4 Direct Bilirubin < 0.2 AST 25 ALT 19 Alkaline Phosphatase 188 H Troponin I High Sens 57.6 H B-Natriuretic Peptide Total Protein 7.7 Albumin 4.7 Lipase 8 COVID-19 (MEY) Negative COVID-19 Clin Com See Note 05/01/20 05/01/20 05/02/20 22:33 22:45 01:05 WBC RBC Hgb Hct MCV MCH MCHC RDW Plt Count MPV Immature Gran % (Auto) Neut % (Auto) Lymph % (Auto) Clarke % (Auto) Eos % (Auto) Baso % (Auto) Lymph # (Auto) Clarke # (Auto) Eos # (Auto) Baso # (Auto) Abs Immat Gran (auto) Absolute Neuts (auto) Absolute Nucleated RBC Nucleated RBC % (auto) Smear Tech's Comments O2 Saturation 98.0 ABG pH at Pt Temp 7.12 L* ABG pH (Temp Correct) 7.12 L* ABG pCO2 at Pt Temp 67 H* ABG pCO2 (Temp Corrct 67 H* ABG pO2 at Pt Temp 159 H ABG pO2 (Temp Correct 159 H ABG HCO3 22 ABG Base Excess (Actual) -8.0 VBG pH 7.20 L* VBG pCO2 65 VBG pO2 64 VBG HCO3 25 VBG O2 Saturation 88.0 VBG Base Excess -3.7 Sodium Potassium Chloride Carbon Dioxide Anion Gap BUN Creatinine Estim Creat Clear Calc Estimated GFR POC Glucose Random Glucose Lactic Acid 1.7 Calcium Phosphorus Magnesium Total Bilirubin Direct Bilirubin AST ALT Alkaline Phosphatase Troponin I High Sens B-Natriuretic Peptide Total Protein Albumin Lipase COVID-19 (MEY) COVID-19 Clin Com 05/02/20 05/02/20 05/02/20 05:30 05:30 05:30 WBC 14.1 H RBC 5.01 Hgb 14.6 Hct 46.3 MCV 92.4 MCH 29.1 MCHC 31.5 RDW 14.4 Plt Count 179 D MPV 10.7 Immature Gran % (Auto) 0.4 Neut % (Auto) 77.9 H Lymph % (Auto) 11.5 L Clarke % (Auto) 9.5 Eos % (Auto) 0.4 Baso % (Auto) 0.3 Lymph # (Auto) 1.6 Clarke # (Auto) 1.3 H Eos # (Auto) 0.1 Baso # (Auto) 0.0 Abs Immat Gran (auto) 0.05 H Absolute Neuts (auto) 11.0 H Absolute Nucleated RBC 0.000 Nucleated RBC % (auto) 0.0 Smear Tech's Comments O2 Saturation ABG pH at Pt Temp ABG pH (Temp Correct) ABG pCO2 at Pt Temp ABG pCO2 (Temp Corrct ABG pO2 at Pt Temp ABG pO2 (Temp Correct ABG HCO3 ABG Base Excess (Actual) VBG pH 7.32 VBG pCO2 41 VBG pO2 38 VBG HCO3 21 L VBG O2 Saturation 66.0 VBG Base Excess -4.0 Sodium 140 Potassium 4.9 Chloride 105 Carbon Dioxide 23 Anion Gap 17 BUN 24 H Creatinine 1.35 Estim Creat Clear Calc 72.3 Estimated GFR 54 POC Glucose Random Glucose 129 H D Lactic Acid Calcium 8.4 D Phosphorus 4.9 H Magnesium 2.0 Total Bilirubin 0.5 Direct Bilirubin AST 24 ALT 18 Alkaline Phosphatase 154 H Troponin I High Sens B-Natriuretic Peptide Total Protein 6.1 L D Albumin 3.9 Lipase COVID-19 (MEY) COVID-19 Clin Com 05/02/20 05/02/20 05:38 11:49 WBC RBC Hgb Hct MCV MCH MCHC RDW Plt Count MPV Immature Gran % (Auto) Neut % (Auto) Lymph % (Auto) Clarke % (Auto) Eos % (Auto) Baso % (Auto) Lymph # (Auto) Clarke # (Auto) Eos # (Auto) Baso # (Auto) Abs Immat Gran (auto) Absolute Neuts (auto) Absolute Nucleated RBC Nucleated RBC % (auto) Smear Tech's Comments O2 Saturation ABG pH at Pt Temp ABG pH (Temp Correct) ABG pCO2 at Pt Temp ABG pCO2 (Temp Corrct ABG pO2 at Pt Temp ABG pO2 (Temp Correct ABG HCO3 ABG Base Excess (Actual) VBG pH 7.32 VBG pCO2 41 VBG pO2 38 VBG HCO3 21 L VBG O2 Saturation 66.0 VBG Base Excess -4.0 Sodium Potassium Chloride Carbon Dioxide Anion Gap BUN Creatinine Estim Creat Clear Calc Estimated GFR POC Glucose 120 H Random Glucose Lactic Acid Calcium Phosphorus Magnesium Total Bilirubin Direct Bilirubin AST ALT Alkaline Phosphatase Troponin I High Sens B-Natriuretic Peptide Total Protein Albumin Lipase COVID-19 (ME[facility]) COVID-19 Clin Com Progress Note: A&P Assessment and plan (1) CVA (cerebral vascular accident): Status: Acute Assessment and Plan: Assessment: 60-year-old gentleman admitted with alteration of mental status, seizure, pulmonary aspiration, acute hypoxic and hypercapnic respiratory failure and close proximity after the 1st dose of COVID-19 Pfizer vaccine. Required intubation and transferred to intensive care unit. Plan: Neuro: CT head with evidence of old infarcts that can serve as substrate for a new seizure. Of note, patient with remote history of seizure in 1980s. Continue on Keppra. Cardiac: No acute issues. Underlying history of coronary artery disease and NS KECIA requiring percutaneous prevention. Troponins flat. ECG with evidence of anterolateral ischemia. 2D echocardiogram is pending. Pulmonary: Acute hypoxic and hypercapnic respiratory failure secondary to pulmonary aspiration on the background of a seizure requiring intubation and ventilatory support. Now with development of aspiration pneumonitis versus pneumonia with copious secretions. Continue to titrate off ventilatory support as tolerated. Renal: No acute issues. Endo: No acute issues. GI: No acute issues. ID: Possible aspiration pneumonitis versus pneumonia. Empirically covered with Levaquin secondary to penicillin allergy. Heme/Onc: No acute issues. Psych: No acute issues. Miscellaneous: No acute issues. Prophylaxis: Heparin, ppi Diet: Nothing by mouth Critical care time spent: 60 minutes (2) COPD (chronic obstructive pulmonary disease): Status: Acute (3) Aspiration into airway: Status: Acute (4) Syncope: Status: Acute (5) Acute respiratory failure with hypoxia and hypercarbia: Status: Acute (6) Seizure: Status: Acute Time Spent With Patient Total time spent with greater than 50% in coordination of care (as documented) at patient's floor/unit and/or counseling patient:: 0 Critical Care Time Critical Care Time (minutes): 60
--- NOTE | 2020-05-02 17:00 | CA_ITS ---
Transthoracic Echocardiogram Patient (Last, First, Middle): Paul Maxwell, Gender: Male Date of : 1960 Age: 60 Procedure Date: 05/02/2020 Procedure Type: Transthoracic Echocardiogram Location: ICU Height: 177.8 cm Weight: 117.03 kg BSA: 2.33 m2 Heart Rate: bpm BP: 141 / 73 mmHg Check Writer: THEO Referring MD: Cristobal Macdonald MD Symptoms: dyspnea, anterolateral ischemia on ECG Study Quality: Technically Difficult/Contrast Conclusions: - Technically limited study. - The left ventricular systolic function is hyperdynamic. The visually estimated ejection fraction is >70%. - There is moderate to severe LVH but imaging is limited. Also cannot rule out apical hypertrophy. Findings Procedure Information The patient receives contrast. Left Ventricle Normal left ventricular cavity size. The left ventricular systolic function is hyperdynamic. The visually estimated ejection fraction is >70%. There is no evidence of regional wall motion abnormalities. Diastolic function is indeterminate on the basis of available data. Right Ventricle Normal right ventricular cavity size and systolic function. Atria The left atrium is mildly dilated. The right atrium is mildly dilated. Aortic Valve The aortic valve was not well visualized. There is mild thickening of the aortic valve. There is mild aortic valve stenosis. There is no aortic valve regurgitation. Mitral Valve The mitral valve was not well visualized. Pulmonic Valve The pulmonic valve was not well visualized. Tricuspid Valve The tricuspid valve was not well visualized. Tricuspid regurgitation envelope is inadequate for calculation of right ventricular systolic pressure. Great Vessels The pulmonary artery was not well visualized. There is mild dilatation of the ascending aorta. Venous The inferior vena cava was not well visualized. Pericardium/Pleural There is no evidence of pericardial effusion. Prior Study Comparison No prior study available for comparison. Measurements 2D Linear Measurements IVSd: 1.54 0.6-0.9/0.6-1.0 cm LVIDd: 3.79 3.9-5.3/4.2-5.9 cm LVIDd Index: 1.63 2.4-3.2/2.2-3.1 cm/m2 LVIDs: 2.93 2.0-3.6 cm LVPWd: 1.51 0.7-1.1 cm Ao Root: 4.10 2.1-3.5 cm LA Diam: 3.90 2.7-3.8/3.0-4.0 cm LAIDs Index: 1.67 1.5-2.3 cm/m2 LV Mass: 276.20 67-162/88-224 g LV Mass Index: 118.54 43-95/49-115 g/m2 LVOT Diam: 2.10 3.0+(-)1.3 cm Aortic Valve AoV Pk Atif: 2.73 AoV Mn Atif: 1.90 AoV VTI: 0.40 AoV Pk Grad: 30.00 Aov Mn Grad: 16.00 LVOT LVOT Diam: 2.10 LVOT Area: 3.46 Great Vessels Aorta Ao Root-2D: 4.10 2.0-3.7 cm Ao Asc: 3.70 2.1-3.4 cm Updated in Other Vendor System with Status of Final Jose Luis Salmon MD electronically signed on 05/03/2020 12:46:25 AM with status of Final
--- NOTE | 2020-05-02 17:22 | P.CONWO_ITS ---
History of Present Illness Data of Consult Service Date: 05/02/20 Requesting physician: Cristobal Macdonald Primary Care Provider: BRITT Armstrong HPI Reason for consult: buttock wound Pt came into the ER and then loss of consciousness seizure activity intubated and then admitted to the ICU. The pt had been walking around independently at home. in the icu was noted to have buttock wound Review of Systems Review of Systems: Unable to do patient is intubated [facility] Medical History (Updated 05/02/20 @ 17:33 by Macrina Weaver MD) Atrial fibrillation CAD (coronary artery disease) COPD (chronic obstructive pulmonary disease) Diabetes mellitus NSTEMI (non-ST elevated myocardial infarction) Pacemaker Sleep apnea Family history: reviewed and not pertinent Surgical History (Updated 05/02/20 @ 00:25 by John Mejias) H/O cardiac catheterization Social History (Updated 05/02/20 @ 00:30 by John Mejias) Smoking Status: Current every day smoker Tobacco Type: Cigarette Currently Displaying Signs/Symptoms of Drug Intoxication Withdrawal: No Advance Directives: No Advance Directives Information Provided: No Do you have thoughts of harming others: None Do you have a plan to hurt others: No Plan service: Yes Current occupational status: retired Meds Allergies Allergy/AdvReac Type Severity Reaction Status Date / Time penicillin G [Penicillin G] Allergy Unknown UNKNOWN Unverified 11/10/19 17:55 Active Medications: Current Medications Generic Name Dose Route Start Last Admin Trade Name Freq PRN Reason Stop Dose Admin Chlorhexidine Gluconate 15 ml 05/01/20 23:00 05/02/20 15:27 Chlorhexidine Gluc Oral Rinse 15 Ml Mouthwash BUCCAL 15 ml Q8H NIALL Administration Heparin Sodium (Porcine) 5,000 unit 05/01/20 23:00 05/02/20 15:27 Heparin Sodium,Porcine 5,000 Unit/Ml Vial SUBCUT 5,000 unit Q8H NIALL Administration Propofol 1,000 mg in 100 mls @ 0 mls/hr 05/01/20 21:30 05/02/20 14:23 Diprivan IVCONT 40 mcg/kg/min .Q0M NIALL 25.04 mls/hr Administration Protocol Per Protocol Fentanyl 1,000 mcg in 100 mls @ 0 mls/hr 05/01/20 22:45 05/02/20 06:39 Sublimaze/Ns IVCONT 25 mcg/hr .Q0M NIALL 2.5 mls/hr Titration Protocol Per Protocol Levofloxacin 750 mg in 150 mls @ 100 mls/hr 05/01/20 23:00 05/02/20 05:26 Levaquin IV Infused Q24H [facility] Infusion Levetiracetam 1,000 mg in 100 mls @ 400 mls/hr 05/02/20 18:00 Keppra IV Q12H [facility] Insulin Human Lispro 0 unit 05/02/20 12:00 05/02/20 11:51 Insulin Lispro 100 Unit/Ml 3 Ml Vial SUBCUT Not Given Q6H [facility] Protocol Lorazepam 2 mg 05/02/20 08:25 Lorazepam 2 Mg/Ml Vial IVPUSH Q4H PRN Sedation Pantoprazole Sodium 40 mg 05/02/20 06:30 05/02/20 05:32 Pantoprazole Sodium 40 Mg/10 Ml Vial IVPUSH 40 mg DAILY@0630 [facility] Administration Physical Exam Vital Signs and Narrative: Vital Signs: Last Vital Signs Temp 100 F 05/02/20 16:00 Pulse 94 05/02/20 16:00 Resp 26 H 05/02/20 16:00 BP 114/69 05/02/20 16:00 Pulse Ox 92 05/02/20 16:00 Body Mass Index 37.0 Skin: Other: pt with midline buttock cleft sinus openings and slight skin breakdown consistent with pilonidal disease and possible deeper cyst. no drainage or fluctuance noted Results Labs CBC and Chem 7: 05/02/20 05:30 05/02/20 05:30 Labs: Laboratory Results - last 24 hr 05/01/20 05/01/20 05/01/20 16:59 16:59 16:59 MCV 89.2 MCH 29.2 MCHC 32.7 RDW 14.4 Plt Count 221 MPV 10.6 Immature Gran % (Auto) 0.1 Neut % (Auto) 67.5 Lymph % (Auto) 22.5 [place] % (Auto) 6.5 Eos % (Auto) 2.7 Baso % (Auto) 0.7 Lymph # (Auto) 1.9 [place] # (Auto) 0.6 Eos # (Auto) 0.2 Baso # (Auto) 0.1 Abs Immat Gran (auto) 0.01 Absolute Neuts (auto) 5.8 Absolute Nucleated RBC 0.000 Nucleated RBC % (auto) 0.0 Smear Tech's Comments O2 Saturation ABG pH at Pt Temp ABG pH (Temp Correct) ABG pCO2 at Pt Temp ABG pCO2 (Temp Corrct ABG pO2 at Pt Temp ABG pO2 (Temp Correct ABG HCO3 ABG Base Excess (Actual) VBG pH VBG pCO2 VBG pO2 VBG HCO3 VBG O2 Saturation VBG Base Excess Anion Gap 13 Estim Creat Clear Calc 93.5 Estimated GFR > 60 POC Glucose Random Glucose 112 Lactic Acid Calcium 9.1 Phosphorus Magnesium Total Bilirubin 0.4 Direct Bilirubin 0.2 AST 18 ALT 16 Alkaline Phosphatase 164 H Troponin I High Sens 54.5 H B-Natriuretic Peptide Total Protein 6.7 Albumin 4.3 Lipase 6 L COVID-19 ([facility]) COVID-19 Clin Com 05/01/20 05/01/20 05/01/20 16:59 20:57 20:59 MCV 95.2 D MCH 29.9 MCHC 31.4 RDW 14.3 Plt Count 245 MPV 10.9 Immature Gran % (Auto) 0.3 Neut % (Auto) 43.0 L Lymph % (Auto) 45.2 H [place] % (Auto) 8.7 Eos % (Auto) 2.1 Baso % (Auto) 0.7 Lymph # (Auto) 7.6 H [place] # (Auto) 1.5 H Eos # (Auto) 0.4 Baso # (Auto) 0.1 Abs Immat Gran (auto) 0.05 H Absolute Neuts (auto) 7.2 Absolute Nucleated RBC 0.000 Nucleated RBC % (auto) 0.0 Smear Tech's Comments VERIFIED O2 Saturation 70.0 ABG pH at Pt Temp 6.82 L* ABG pH (Temp Correct) 6.82 L* ABG pCO2 at Pt Temp 110 H* ABG pCO2 (Temp Corrct 109 H* ABG pO2 at Pt Temp 64 L ABG pO2 (Temp Correct 63 L ABG HCO3 18 L ABG Base Excess (Actual) -18.8 VBG pH VBG pCO2 VBG pO2 VBG HCO3 VBG O2 Saturation VBG Base Excess Anion Gap Estim Creat Clear Calc Estimated GFR POC Glucose Random Glucose Lactic Acid Calcium Phosphorus Magnesium Total Bilirubin Direct Bilirubin AST ALT Alkaline Phosphatase Troponin I High Sens B-Natriuretic Peptide 470 H Total Protein Albumin Lipase COVID-19 (MEY) COVID-19 Clin Com 05/01/20 05/01/20 05/01/20 20:59 20:59 21:52 MCV MCH MCHC RDW Plt Count MPV Immature Gran % (Auto) Neut % (Auto) Lymph % (Auto) [place] % (Auto) Eos % (Auto) Baso % (Auto) Lymph # (Auto) [place] # (Auto) Eos # (Auto) Baso # (Auto) Abs Immat Gran (auto) Absolute Neuts (auto) Absolute Nucleated RBC Nucleated RBC % (auto) Smear Tech's Comments O2 Saturation ABG pH at Pt Temp ABG pH (Temp Correct) ABG pCO2 at Pt Temp ABG pCO2 (Temp Corrct ABG pO2 at Pt Temp ABG pO2 (Temp Correct ABG HCO3 ABG Base Excess (Actual) VBG pH VBG pCO2 VBG pO2 VBG HCO3 VBG O2 Saturation VBG Base Excess Anion Gap 21 H Estim Creat Clear Calc 69.1 Estimated GFR 54 POC Glucose Random Glucose 263 H D Lactic Acid Calcium 9.2 Phosphorus Magnesium Total Bilirubin 0.4 Direct Bilirubin < 0.2 AST 25 ALT 19 Alkaline Phosphatase 188 H Troponin I High Sens 57.6 H B-Natriuretic Peptide Total Protein 7.7 Albumin 4.7 Lipase 8 COVID-19 (MEY) Negative COVID-19 Clin Com See Note 05/01/20 05/01/20 05/02/20 22:33 22:45 01:05 MCV MCH MCHC RDW Plt Count MPV Immature Gran % (Auto) Neut % (Auto) Lymph % (Auto) [place] % (Auto) Eos % (Auto) Baso % (Auto) Lymph # (Auto) [place] # (Auto) Eos # (Auto) Baso # (Auto) Abs Immat Gran (auto) Absolute Neuts (auto) Absolute Nucleated RBC Nucleated RBC % (auto) Smear Tech's Comments O2 Saturation 98.0 ABG pH at Pt Temp 7.12 L* ABG pH (Temp Correct) 7.12 L* ABG pCO2 at Pt Temp 67 H* ABG pCO2 (Temp Corrct 67 H* ABG pO2 at Pt Temp 159 H ABG pO2 (Temp Correct 159 H ABG HCO3 22 ABG Base Excess (Actual) -8.0 VBG pH 7.20 L* VBG pCO2 65 VBG pO2 64 VBG HCO3 25 VBG O2 Saturation 88.0 VBG Base Excess -3.7 Anion Gap Estim Creat Clear Calc Estimated GFR POC Glucose Random Glucose Lactic Acid 1.7 Calcium Phosphorus Magnesium Total Bilirubin Direct Bilirubin AST ALT Alkaline Phosphatase Troponin I High Sens B-Natriuretic Peptide Total Protein Albumin Lipase COVID-19 ([facility]) COVID-19 [facility] Com 05/02/20 05/02/20 05/02/20 05:30 05:30 05:30 MCV 92.4 MCH 29.1 MCHC 31.5 RDW 14.4 Plt Count 179 D MPV 10.7 Immature Gran % (Auto) 0.4 Neut % (Auto) 77.9 H Lymph % (Auto) 11.5 L [place] % (Auto) 9.5 Eos % (Auto) 0.4 Baso % (Auto) 0.3 Lymph # (Auto) 1.6 [place] # (Auto) 1.3 H Eos # (Auto) 0.1 Baso # (Auto) 0.0 Abs Immat Gran (auto) 0.05 H Absolute Neuts (auto) 11.0 H Absolute Nucleated RBC 0.000 Nucleated RBC % (auto) 0.0 Smear Tech's Comments O2 Saturation ABG pH at Pt Temp ABG pH (Temp Correct) ABG pCO2 at Pt Temp ABG pCO2 (Temp Corrct ABG pO2 at Pt Temp ABG pO2 (Temp Correct ABG HCO3 ABG Base Excess (Actual) VBG pH 7.32 VBG pCO2 41 VBG pO2 38 VBG HCO3 21 L VBG O2 Saturation 66.0 VBG Base Excess -4.0 Anion Gap 17 Estim Creat Clear Calc 72.3 Estimated GFR 54 POC Glucose Random Glucose 129 H D Lactic Acid Calcium 8.4 D Phosphorus 4.9 H Magnesium 2.0 Total Bilirubin 0.5 Direct Bilirubin AST 24 ALT 18 Alkaline Phosphatase 154 H Troponin I High Sens B-Natriuretic Peptide Total Protein 6.1 L D Albumin 3.9 Lipase COVID-19 ([facility]) COVID-19 [facility] Com 05/02/20 05/02/20 05:38 11:49 MCV MCH MCHC RDW Plt Count MPV Immature Gran % (Auto) Neut % (Auto) Lymph % (Auto) [place] % (Auto) Eos % (Auto) Baso % (Auto) Lymph # (Auto) [place] # (Auto) Eos # (Auto) Baso # (Auto) Abs Immat Gran (auto) Absolute Neuts (auto) Absolute Nucleated RBC Nucleated RBC % (auto) Smear Tech's Comments O2 Saturation ABG pH at Pt Temp ABG pH (Temp Correct) ABG pCO2 at Pt Temp ABG pCO2 (Temp Corrct ABG pO2 at Pt Temp ABG pO2 (Temp Correct ABG HCO3 ABG Base Excess (Actual) VBG pH 7.32 VBG pCO2 41 VBG pO2 38 VBG HCO3 21 L VBG O2 Saturation 66.0 VBG Base Excess -4.0 Anion Gap Estim Creat Clear Calc Estimated GFR POC Glucose 120 H Random Glucose Lactic Acid Calcium Phosphorus Magnesium Total Bilirubin Direct Bilirubin AST ALT Alkaline Phosphatase Troponin I High Sens B-Natriuretic Peptide Total Protein Albumin Lipase COVID-19 ([facility]) COVID-19 Clin Com Imaging Radiologist's Impressions: Impressions Chest X-Ray 05/01/20 16:29 IMPRESSION: I do not have any prior films available for comparison. There is mild central vascular prominence and increased interstitial/reticular markings. A component of mild pulmonary edema would be difficult to exclude in the acute setting. Clinical correlation and follow-up recommended. Chest X-Ray 05/01/20 20:53 IMPRESSION: Worsened central vascular prominence and increased interstitial/reticular markings consistent with worsening pulmonary edema when compared to earlier tonight. Patient is now admitted. Head CT 05/01/20 20:53 IMPRESSION: No acute intracranial pathology. Multiple chronic infarcts in the right frontal lobe and basal ganglia. Moderate paranasal sinus opacification. Abdomen/Pelvis CT 05/02/20 00:43 IMPRESSION: 1. Bilateral lower lobe collapse and moderate size pleural effusions. Some element of CHF may be present with some groundglass change representing edema. 2. No acute abnormality is seen in the abdomen. 3. ET tube present 5 cm above the grupo. The NG tube is at the GE junction and should be advanced. Chest CT 05/02/20 00:43 IMPRESSION: 1. Bilateral lower lobe collapse and moderate size pleural effusions. Some element of CHF may be present with some groundglass change representing edema. 2. No acute abnormality is seen in the abdomen. 3. ET tube present 5 cm above the grupo. The NG tube is at the GE junction and should be advanced. Chest X-Ray 05/02/20 08:42 IMPRESSION: 1. ET tube 6 cm above grupo. NG tube in abdomen. 2. Interval moderate decrease in both vascular congestion and pulmonary opacities when compared with prior exam 05/01/2020. Assessment and Plan (1) CVA (cerebral vascular accident): Status: Acute Assessment: 60-year-old gentleman admitted with alteration of mental status, seizure, pulmonary aspiration, acute hypoxic and hypercapnic respiratory failure and close proximity after the 1st dose of COVID-19 Pfizer vaccine. Required intubation and transferred to intensive care unit. Plan: Neuro: CT head with evidence of old infarcts that can serve as substrate for a new seizure. Of note, patient with remote history of seizure in 1980s. Continue on Keppra. Cardiac: No acute issues. Underlying history of coronary artery disease and NSTEMI requiring percutaneous prevention. Troponins flat. ECG with evidence of anterolateral ischemia. 2D echocardiogram is pending. Pulmonary: Acute hypoxic and hypercapnic respiratory failure secondary to pulmonary aspiration on the background of a seizure requiring intubation and ventilatory support. Now with development of aspiration pneumonitis versus pneumonia with copious secretions. Continue to titrate off ventilatory support as tolerated. Renal: No acute issues. Endo: No acute issues. GI: No acute issues. ID: Possible aspiration pneumonitis versus pneumonia. Empirically covered with Levaquin secondary to penicillin allergy. Heme/Onc: No acute issues. Psych: No acute issues. Miscellaneous: No acute issues. Prophylaxis: Heparin, ppi Diet: Nothing by mouth Critical care time spent: 60 minutes (2) Acute respiratory failure with hypoxia and hypercarbia: Status: Acute (3) Pilonidal cyst of cleft: Problem details: no active disease - ok to use barrier cream Status: Acute
[2020-05-02] MEDS: levETIRAcetam in NaCl (iso-os) 1,000 MG/100 ML PIGGYBACK 400 MG IV (18:05)
[2020-05-02 18:16] LABS: Glucose, Whole Blood 120 mg/dL (60-115)
--- NOTE | 2020-05-02 18:41 | PC.NURSE ---
FENTANYL AND PROPOFOL GTTS FOR SEDATION, SEE DRUG TITRATION. MAX 100.4, VS STABLE. VENT SETTINGS A/C 26 TV 500 PEEP 5 FIO2 50%. COPIOUS AMOUNTS OF ORAL AND INLINE SECRETIONS, GREEN THICK MUCOUS SUCTIONED FROM NOSE. CHAMPAGNE WNL. NO BM THIS SHIFT, SMEARING NOTED. Q2HR REPO, BARRIER CREAM APPLIED, PREVALON MATTRESS AND PILLOWS UTILIZED, BATHED. FAMILY UPDATED BY RN AND
[2020-05-02] MEDS: fentaNYL citrate/NS 1,000 MCG/100 ML PLAST..BAG 2.5 MCG IVCONT (22:02)
[2020-05-03] VITALS (22 sets, daily range): BP systolic 108–178; BP diastolic 62–92; PULSE 83–103; RESP 14–26; TEMP 36.2–37.9; O2SAT 90–95; BMI 37.0
[2020-05-03] MEDS: levoFLOXacin/D5W 750 MG/150 ML PIGGYBACK 100 MG IV ×2 (00:16→23:23)
[2020-05-03] MEDS: Heparin Sodium,Porcine 5,000 UNIT/ML VIAL 5000 UNIT SUBCUT ×4 (00:17→23:23)
[2020-05-03] MEDS: propofoL 1,000 MG/100 ML VIAL 25.04 MG IVCONT ×3 (00:17→08:00)
[2020-05-03] MEDS: Chlorhexidine Gluc Oral Rinse 15 ML MOUTHWASH BUCCAL ×2 (00:17→08:00)
[2020-05-03 00:57] LABS: Glucose, Whole Blood 137 mg/dL (60-115)
[2020-05-03 05:45] LABS: MANUAL DIFF FLAG NO
[2020-05-03 05:47] LABS: Basophils Percent Auto 0.2 % (0-2); Eosinophils Absolute Auto 0.2 X10*3/uL (0.0-0.4); Eosinophils Percent Auto 2.1 % (0-4); Hematocrit 42.9 % (42-52); Imm Gran Abs Auto 0.02 X10*3/uL (0.00-0.03); Imm Gran Pct Auto 0.2 % (0.0-0.4); Lymphocytes Absolute Auto 1.2 X10*3/uL (1.2-4.9); Lymphocytes Percent Auto 14.7 % (20-40); Mean Corpuscular HGB Conc 32.6 g/dl (31.0-36.0); Mean Corpuscular Hemoglobin 29.5 pg (27.0-33.0); Mean Corpuscular Volume 90.5 fL (80-98); Mean Platelet Volume 10.5 fL (9.4-12.4); Monocytes Absolute Auto 0.7 X10*3/uL (0.1-1.2); Neutrophils Absolute Auto 6.1 X10*3/uL (2.0-8.3); Neutrophils Percent Auto 73.8 % (45-73); Platelet Count 157 X10*3/uL (160-400); Red Blood Count 4.74 X10*6/uL (4.60-5.80); Red Cell Distribution Width 14.6 % (11.0-16.0); White Blood Count 8.2 X10*3/uL (4.8-10.8)
[2020-05-03 05:49] LABS: Venous Blood Gas Refer to POC result
[2020-05-03 05:50] LABS: VBG Base Excess 1.9 mmol/L; VBG HCO3 25 mmol/L (22-26); VBG pCO2 34 mmHg; VBG pH 7.47 (7.32-7.43); VBG pO2 145 mmHg
[2020-05-03 06:15] LABS: Albumin Level 3.4 g/dL (3.5-5.0); Anion Gap 10 (12-20); Blood Urea Nitrogen 23 mg/dL (9-16); Calcium 8.2 mg/dL (8.4-10.2); Carbon Dioxide 26 mmol/L (22-29); Chloride 106 mmol/L (96-108); Creatinine Clr Calc Pharmacy 101.2; Estimated Glomerular Filt Rate > 60; Glucose Random 124 mg/dL (60-115); Phosphorus 2.9 mg/dL (2.7-4.5); Potassium 3.6 mmol/L (3.3-5.1); Sodium 138 mmol/L (135-145)
[2020-05-03] MEDS: levETIRAcetam in NaCl (iso-os) 1,000 MG/100 ML PIGGYBACK 400 MG IV ×2 (06:41→17:52)
[2020-05-03] MEDS: Pantoprazole Sodium 40 MG/10 ML VIAL IVPUSH (06:43)
--- NOTE | 2020-05-03 07:57 | ECG_ITS ---
Test Reason : ? RHYTHM CHANGES Blood Pressure : / mmHG Vent. Rate : 093 BPM Atrial Rate : 093 BPM P-R Int : 166 ms QRS Dur : 102 ms QT Int : 452 ms P-R-T Axes : 059 029 118 degrees QTc Int : 561 ms Sinus rhythm with Premature atrial complexes ST & T wave abnormality, consider anterolateral ischemia Prolonged QT Abnormal ECG No previous ECGs available Referred By: Cristobal Macdonald Electronically Signed By:LINSEY JOHN MD
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
--- NOTE | 2020-05-03 09:53 | MHC.CDI.CONC ---
CDI Concurrent Query Service Date: 05/03/20 Documentation Clarification: Please clarify if you are treating a probable/suspected/likely or confirmed: Congestive heart failure (treat, rule out) Acute diastolic and/or systolic CHF Acute on chronic diastolic and/or systolic CHF Please specify if known Provider Response: Other Other Diagnosis: Underlying chronic diastolic dysfunction with no acute exacerbation. PLEASE DO NOT DELETE/MODIFY EXISTING CONTENT Additional information is needed in order to code to the highest accuracy and appropriate Severity of Illness (SOI). Please clarify the information noted below in your progress notes and discharge summary. Risk Factors/Clinical Indicators/Treatments CT: 05/02 - bilateral lower lobe collapse and moderate size pleural effusion some element of CHF may be present with ground glass change representing edema. BNP 470 H bilateral edema, 2nd Echo pending. CDS: Selene Feldman [facility], CDIS Contact Number: [phone] Please Review the information above and exercise your independent professional judgment in responding to the query. If you concur, pleas document in the PROGRESS NOTES and DISCHARGE SUMMARY. If you do not agree with the query, please document in the query above. THIS QUERY IS PART OF THE PERMANENT MEDICAL RECORD
[2020-05-03 12:09] LABS: Glucose, Whole Blood 117 mg/dL (60-115)
--- NOTE | 2020-05-03 12:14 | PM.CCPN ---
Subjective Subjective Date of Service: 05/03/20 Interval History: 60-year-old gentleman with underlying history of coronary artery disease status post NSTEMI in March of 2019, AFib, diabetes mellitus, COPD, sleep apnea, obesity admitted on 05/01/2020 after development of alteration of mental status, seizure, pulmonary aspiration, and acute hypoxic respiratory failure shortly after the 1st dose of COVID-19 Pfizer vaccine. Patient emergently intubated in the emergency room (difficult intubation), had CT head obtained that showed no acute infarcts, and was transferred to intensive care unit. No events overnight. Extubated uneventfully this a.m.. Still mildly hypoxic. Physical Exam Vital Signs: Vital Signs: Last Vital Signs Temp 99.7 F 05/03/20 12:00 Pulse 91 05/03/20 12:00 Resp 24 H 05/03/20 12:00 BP 132/92 H 05/03/20 12:00 Pulse Ox 90 L 05/03/20 12:00 Body Mass Index 37.0 Const: General: no acute distress, alert and awake Eyes: Sclerae: sclerae normal EOM: EOMs intact bilaterally Neck: Neck: Yes no lymphadenopathy, Yes trachea midline and Yes supple Resp: Effort & Inspection: normal respiratory effort and no respiratory distress Auscultation: clear to auscultation bilaterally Cardio: Rate: regular rate Rhythm: regular rhythm Heart sounds: no gallops, no murmurs and no rubs GI: Palpation (GI): Soft to palpation and Other GI palpation findings present ( Nontender) Auscultation: normal bowel sounds Extrem: General: No clubbing, No cyanosis and Yes edema (1+ b/l) Objective Data Labs CBC & Chem 7: 05/03/20 05:31 05/03/20 05:31 Labs: Laboratory Results - last 24 hr 05/02/20 05/03/20 05/03/20 18:11 00:38 05:31 WBC 8.2 RBC 4.74 Hgb 14.0 Hct 42.9 MCV 90.5 MCH 29.5 MCHC 32.6 RDW 14.6 Plt Count 157 L MPV 10.5 Immature Gran % (Auto) 0.2 Neut % (Auto) 73.8 H Lymph % (Auto) 14.[address] [place] % (Auto) 9.0 Eos % (Auto) 2.1 Baso % (Auto) 0.2 Lymph # (Auto) 1.2 [place] # (Auto) 0.7 Eos # (Auto) 0.2 Baso # (Auto) 0.0 Abs Immat Gran (auto) 0.02 Absolute Neuts (auto) 6.1 Absolute Nucleated RBC 0.000 Nucleated RBC % (auto) 0.0 VBG pH VBG pCO2 VBG pO2 VBG HCO3 VBG O2 Saturation VBG Base Excess Sodium Potassium Chloride Carbon Dioxide Anion Gap BUN Creatinine Estim Creat Clear Calc Estimated GFR POC Glucose 120 H 137 H Random Glucose Calcium Phosphorus Magnesium Albumin 05/03/20 05/03/20 05/03/20 05:31 05:43 12:02 WBC RBC Hgb Hct MCV MCH MCHC RDW Plt Count MPV Immature Gran % (Auto) Neut % (Auto) Lymph % (Auto) [place] % (Auto) Eos % (Auto) Baso % (Auto) Lymph # (Auto) [place] # (Auto) Eos # (Auto) Baso # (Auto) Abs Immat Gran (auto) Absolute Neuts (auto) Absolute Nucleated RBC Nucleated RBC % (auto) VBG pH 7.47 H VBG pCO2 34 VBG pO2 145 VBG HCO3 25 VBG O2 Saturation 99.0 VBG Base Excess 1.9 Sodium 138 Potassium 3.6 D Chloride 106 Carbon Dioxide 26 Anion Gap 10 L BUN 23 H Creatinine 0.97 Estim Creat Clear Calc 101.2 Estimated GFR > 60 POC Glucose 117 H Random Glucose 124 H Calcium 8.2 L Phosphorus 2.9 Magnesium 2.0 Albumin 3.4 L Microbiology Microbiology Results: Microbiology 05/01/20 23:08 Blood - Venous Blood Culture - Preliminary No growth after 24 hours. 05/01/20 23:08 Blood - Venous Blood Culture - Preliminary No growth after 24 hours. Progress Note: A&P Assessment and plan (1) CVA (cerebral vascular accident): Status: Acute Assessment and Plan: Assessment: 60-year-old gentleman admitted with alteration of mental status, seizure, pulmonary aspiration, acute hypoxic and hypercapnic respiratory failure and close proximity after the 1st dose of COVID-19 Pfizer vaccine. Required intubation and transferred to intensive care unit. Plan: Neuro: CT head with evidence of old infarcts that can serve as substrate for a new seizure. Of note, patient with remote history of seizure in 1980s. Continue on Keppra. Cardiac: No acute issues. Underlying history of coronary artery disease and NSTEMI requiring percutaneous prevention. Troponins flat. ECG with evidence of anterolateral ischemia. 2D echocardiogram with LVH. Pulmonary: Acute hypoxic and hypercapnic respiratory failure secondary to pulmonary aspiration on the background of a seizure requiring intubation and ventilatory support. Extubated this a.m.. Continue with his mild hypoxia secondary to pulmonary aspiration. Renal: No acute issues. Endo: No acute issues. GI: No acute issues. ID: Possible aspiration pneumonitis versus pneumonia. Empirically covered with Levaquin secondary to penicillin allergy. Heme/Onc: No acute issues. Psych: No acute issues. Miscellaneous: No acute issues. Prophylaxis: Heparin, does not require GI prophylaxis Diet: Cardiac Critical care time spent: 45 minutes (2) Acute respiratory failure with hypoxia: Status: Acute (3) COPD (chronic obstructive pulmonary disease): Status: Acute (4) Aspiration into airway: Status: Acute (5) Seizure: Status: Acute Time Spent With Patient Total time spent with greater than 50% in coordination of care (as documented) at patient's floor/unit and/or counseling patient:: 0 Critical Care Time 45 minutes
[2020-05-03 17:43] LABS: Glucose, Whole Blood 128 mg/dL (60-115)
[2020-05-04] VITALS (9 sets, daily range): BP systolic 122–174; BP diastolic 61–83; PULSE 73–93; RESP 17–20; TEMP 36.4–37.3; O2SAT 91–98
--- NOTE | 2020-05-04 | EEG_ITS ---
The waking background activity consists of a well-defined moderate voltage posterior 8 hertz alpha frequency, intermixed anteriorly with low-voltage fast frequencies and muscle artifact. Drowsiness is characterized by diffuse theta slowing. Photic stimulation is without activation. Hyperventilation was omitted. No sleep stages are identified. No focal, lateralizing, or paroxysmal discharges seen. IMPRESSION: This waking EEG is within normal limits. MD CARLENE Portillo/AVE / [phone]
[2020-05-04 00:19] LABS: Glucose, Whole Blood 152 mg/dL (60-115)
[2020-05-04] MEDS: Acetaminophen 325 MG TABLET 650 MG PO ×2 (00:22→08:15)
[2020-05-04] MEDS: Insulin Lispro 100 UNIT/ML 3 ML VIAL SUBCUT (00:26)
[2020-05-04 05:46] LABS: Glucose, Whole Blood 107 mg/dL (60-115)
[2020-05-04] MEDS: levETIRAcetam in NaCl (iso-os) 1,000 MG/100 ML PIGGYBACK 400 MG IV ×2 (05:56→18:50)
[2020-05-04] MEDS: Heparin Sodium,Porcine 5,000 UNIT/ML VIAL 5000 UNIT SUBCUT (05:56)
--- NOTE | 2020-05-04 10:58 | MHC.CM.PN ---
Per ROUNDS discussion, Patient does not appear ready for dc (IV Keppra and IV Levaquin). Home is the goal for dc and CM will follow for possible need to adjust the dc plan.
[2020-05-04 11:51] LABS: Glucose, Whole Blood 144 mg/dL (60-115)
--- NOTE | 2020-05-04 11:51 | HO.PM.IMPN ---
Subjective Subjective Date of Service: 05/04/20 <BRITT Angel - Last Filed: 05/04/20 14:17> 05/05/20 <Leonides Oh MD - Last Filed: 05/05/20 16:11> Interval History: f/u for admission to ICU for seizure activity and hypoxia requiring intubation. Extubated yesterday 05/03 and downgraded from ICU Reports being sore all over Mild shortness of breath No chest pain <BRITT Angel - Last Filed: 05/04/20 14:17> Physical Exam Vital Signs: Vital Signs: Last Vital Signs Temp 97.5 F 05/04/20 08:00 Pulse 84 05/04/20 08:00 Resp 18 05/04/20 08:00 BP 133/81 05/04/20 08:00 Pulse Ox 91 L 05/04/20 08:00 Body Mass Index 37.0 <BRITT Angel - Last Filed: 05/04/20 14:17> Const: General: cooperative, comfortable, no acute distress, alert and awake <BRITT Angel - Last Filed: 05/04/20 14:17> Nutritional Appearance: overweight <BRITT Angel - Last Filed: 05/04/20 14:17> Orientation/consciousness: patient oriented x3 <BRITT Angel - Last Filed: 05/04/20 14:17> HENMT: Head: Yes normocephalic and Yes atraumatic <BRITT Angel - Last Filed: 05/04/20 14:17> Eyes: Sclerae: sclerae normal <BRITT Angel - Last Filed: 05/04/20 14:17> Chest: Chest palpation & inspection: normal inspection of the chest <BRITT Angel - Last Filed: 05/04/20 14:17> Resp: Effort & Inspection: normal respiratory effort and no respiratory distress <BRITT Angel - Last Filed: 05/04/20 14:17> Auscultation: wheezes (b/l expiratory wheezing) <BRITT Angel - Last Filed: 05/04/20 14:17> Cardio: Rate: regular rate <BRITT Angel Last Filed: 05/04/20 14:17> Rhythm: regular rhythm <BRITT Angel Last Filed: 05/04/20 14:17> GI: Palpation (GI): Soft to palpation and nontender <BRITT Angel Last Filed: 05/04/20 14:17> Skin: General skin exam: no rashes or lesions noted <BRITT Angel Last Filed: 05/04/20 14:17> Neuro: General: patient oriented x3 <BRITT Angel Last Filed: 05/04/20 14:17> Cranial nerves: Yes CN's II-XII intact bilaterally and Yes Bilaterally intact EOM present <BRITT Angel Last Filed: 05/04/20 14:17> Extrem: General: Yes normal to inspection <BRITT Angel Last Filed: 05/04/20 14:17> Objective Data Current Medications Generic Name Dose Route Start Last Admin Trade Name Freq PRN Reason Stop Dose Admin Acetaminophen 650 mg 05/03/20 23:26 05/04/20 08:15 Acetaminophen 325 Mg Tablet PO 650 mg Q6H PRN Administration Pain, Moderate (Pain Scale 4-6 Apixaban 5 mg 05/04/20 21:00 Apixaban 5 Mg Tablet PO BID [facility] Aspirin 81 mg 05/05/20 09:00 Aspirin Enteric Coated 81 Mg Tablet.Dr PO DAILY [facility] Atorvastatin Calcium 80 mg 05/05/20 09:00 Atorvastatin Calcium 80 Mg Tablet PO DAILY [facility] Levofloxacin 750 mg in 150 mls @ 100 mls/hr 05/01/20 23:00 05/04/20 01:00 Levaquin IV Infused Q24H [facility] Infusion Levetiracetam 1,000 mg in 100 mls @ 400 mls/hr 05/02/20 18:00 05/04/20 06:37 Keppra IV Infused Q12H [facility] Infusion Insulin Human Lispro 0 unit 05/04/20 16:30 Insulin Lispro 100 Unit/Ml 3 Ml Vial SUBCUT QIDACHS [facility] Protocol <BRITT Angel Last Filed: 05/04/20 14:17> Labs CBC & Chem 7: : 03/13/21 06:17 05/05/20 06:17 <BRITT Angel - Last Filed: 05/04/20 14:17> Microbiology Microbiology Results: Microbiology 05/01/20 23:08 Blood - Venous Blood Culture - Preliminary No growth after 48 hours. 05/01/20 23:08 Blood - Venous Blood Culture - Preliminary No growth after 48 hours. <BRITT Angel - Last Filed: 05/04/20 14:17> Assessment and Plan (1) Acute respiratory failure with hypoxia: Status: Acute <BRITT Angel - Last Filed: 05/04/20 14:17> (2) COPD (chronic obstructive pulmonary disease): Status: Acute <BRITT Angel - Last Filed: 05/04/20 14:17> (3) Seizure: Problem details: History of remote seizures in the . Possibly posttraumatic. Probable seizure in the emergency room <BRITT Angel - Last Filed: 05/04/20 14:17> Status: Acute <BRITT Angel - Last Filed: 05/04/20 14:17> Assessment and Plan: 60-year-old gentleman with underlying history of CAD s/p NSTEMI in March of 2019, AFib on Eliquis, diabetes mellitus, COPD, sleep apnea, obesity admitted on 05/01/2020 after development of alteration of mental status, seizure, pulmonary aspiration, and acute hypoxic respiratory failure shortly after the 1st dose of COVID-19 Pfizer vaccine. Patient emergently intubated in the emergency room (difficult intubation), had CT head obtained that showed no acute infarcts, and was transferred to intensive care unit, extubated 05/03 and downgraded to intermediate care unit. Acute hypoxic and hypercapnic respiratory failure r/t aspiration in setting of seizure -titrate off o2 -continue IV levaquin seizure Remote h/o seizure in 1979, previously on Dilantin per patient, d/c many years ago Brain CT showing multiple chronic infarcts, pt denies known history of cva -seizure precautions -started on keppra in ICU, will continue -EEG -neuro consult pending Aspiration pneumonia vs pneumonitis -IV levaquin -will add breathing treatments COPD -will add breathing treatments Thrombocytopenia -Follow CBC echo from 05/02 The left ventricular systolic function is hyperdynamic. The visually estimated ejection fraction is >70%. There is moderate to severe LVH but imaging is limited. Also cannot rule out apical hypertrophy Atrial fibrillation -resume Eliquis, cardizem, metoprolol prolonged QT -repeat EKG -avoid QT prolonging meds HTN. -resume lisinopril, metoprolol, cardizem DM Metformin on hold Change to diabetic diet -SSI, POCs CAD -Resume ASA, statin, BB KATERINA -CPAP <BRITT Angel - Last Filed: 05/04/20 14:17>
--- NOTE | 2020-05-04 11:53 | ECG_ITS ---
Test Reason : REPEAT Blood Pressure : / mmHG Vent. Rate : 075 BPM Atrial Rate : 075 BPM P-R Int : 190 ms QRS Dur : 120 ms QT Int : 420 ms P-R-T Axes : 058 022 179 degrees QTc Int : 469 ms Normal sinus rhythm Left ventricular hypertrophy with QRS widening and repolarization abnormality Possible Inferior infarct , age undetermined Abnormal ECG When compared with ECG of 03-MAY-2020 08:02, Premature atrial complexes are no longer Present Borderline criteria for Inferior infarct are now Present T wave inversion now evident in Inferior leads T wave inversion more evident in Anterior leads QT has shortened Referred By: Maureen Peñaloza Electronically Signed By:LINSEY JOHN MD
--- NOTE | 2020-05-04 12:22 | MHC.CLN ---
F/U PO INTAKE 100% DIET RX: 2200DM -WILL ADD 2GM NA TO CURRENT DIET R/T CAD FOLLOWING
[2020-05-04] MEDS: Gabapentin 400 MG CAPSULE 800 MG PO ×2 (14:41→20:20)
[2020-05-04] MEDS: Albuterol/Iprat 2.5/0.5MG 3 ML AMPUL.NEB INHALE ×2 (15:00→20:09)
--- NOTE | 2020-05-04 16:06 | P.CNNE_ITS ---
History of Present Illness Data of Consult Service Date: 05/04/20 Primary Care Provider: BRITT Armstrong HPI Reason for consult: Possible seizure in the emergency room with a remote history of seizures This is a 60-year-old man who says that he's had a closed head injury in the past and had seizures in the 1980s and was treated with Dilantin but has been off medications for many years. He presented to the emergency room where the acute respiratory failure and hypoxia superimposed on COPD aspiration and was intubated. While in the emergency roomHe was noted to have a seizure-like episode for which he was given Ativan and started on Keppra. He is now extubated and feels mentally clear has some weakness in his arms left greater than right. He denies having had a previous stroke. CAT scan shows an area of encephalomalacia in the right basal ganglia and inferior frontal portion of it could be a previous stroke or possibly related also to the closed head injury the detail of which are not available. The patient has had an EEG which is completely normal. He has had no further seizures while in the hospital. Review of Systems Eyes: Eyes: Reports no additional eye complaints ENT: Reports system reviewed and no additional complaints, except as documented and Reports Normal hearing present Cardiovascular: Cardiovascular: Reports no additional cardiovascular complaints Respiratory: Respiratory: Reports no additional respiratory complaints Gastrointestinal: Gastrointestinal: Reports no additional gastrointestinal complaints Genitourinary: Genitourinary: Reports no additional male genitourinary complaints Musculoskeletal: Musculoskeletal: Reports no additional musculoskeletal complaints Integumentary/Breasts: Skin/Breast: Reports system reviewed and no additional complaints, except as docu Neurologic: Reports as per HPI and Reports Normal hearing present Psychiatric: Psychiatric: Reports as per HPI Endocrine: Endocrine: Reports no additional endocrine complaints Hematologic/Lymphatic: Hematologic/Lymphatic: Reports no additional hematologic/lymphatic complaints Allergic/Immunologic: Allergic/Immunologic: Reports no additional allergic/immunologic complaints [facility] Past Medical History Medical History (Updated 05/04/20 @ 16:10 by Lc Aldana MD) Atrial fibrillation CAD (coronary artery disease) COPD (chronic obstructive pulmonary disease) Diabetes mellitus NSTEMI (non-ST elevated myocardial infarction) Pacemaker Sleep apnea Family History Family history: reviewed and not pertinent Surgical History Surgical History (Updated 05/02/20 @ 00:25 by John Mejias) H/O cardiac catheterization Social History Social History (Updated 05/02/20 @ 00:30 by John Mejias) Household Members: None Housing: Other Housing Other:: mobile home Do you presently have visiting nurse or other home services: No Smoking Status: Current every day smoker Tobacco Type: Cigarette Use of substances other than those prescribed or required for medical reasons: No Currently Displaying Signs/Symptoms of Drug Intoxication Withdrawal: No Have you been hit, kicked, punched, or otherwise hurt by someone within the past year? If so, by whom?: No Do you feel safe in your current relationship?: No Current Relationship Is there a partner from a previous relationship who is making you feel unsafe now?: No Are you made to feel afraid or neglected: No Advance Directives: No Advance Directives Information Provided: No Do you have thoughts of harming others: None Do you have a plan to hurt others: No Plan Recently lost weight without trying: No service: Yes Current occupational status: retired Meds Allergies Allergy/AdvReac Type Severity Reaction Status Date / Time bee pollen [bee stings] Allergy Severe Anaphylaxis Verified 05/03/20 09:16 penicillin G [Penicillin G] Allergy Mild Hives Verified 05/03/20 09:15 Active Medications: Current Medications Generic Name Dose Route Start Last Admin Trade Name Freq PRN Reason Stop Dose Admin Acetaminophen 650 mg 05/03/20 23:26 05/04/20 08:15 Acetaminophen 325 Mg Tablet PO 650 mg Q6H PRN Administration Pain, Moderate (Pain Scale 4-6 Albuterol/Ipratropium 3 ml 05/04/20 16:00 05/04/20 15:00 Albuterol/Iprat 2.5/0.5mg 3 Ml Ampul.Neb INHALE 3 ml RQ4H WHILE AWAKE [facility] Administration Apixaban 5 mg 05/04/20 21:00 Apixaban 5 Mg Tablet PO BID [facility] Aspirin 81 mg 05/05/20 09:00 Aspirin Enteric Coated 81 Mg Tablet. PO DAILY [facility] Atorvastatin Calcium 80 mg 05/05/20 09:00 Atorvastatin Calcium 80 Mg Tablet PO DAILY [facility] Diltiazem HCl 120 mg 05/05/20 09:00 Diltiazem Hcl Cd 120 Mg Cap.Er.Deg PO DAILY [facility] Protocol Gabapentin 800 mg 05/04/20 15:00 05/04/20 14:41 Gabapentin 400 Mg Capsule PO 800 mg TID [facility] Administration Levofloxacin 750 mg in 150 mls @ 100 mls/hr 05/01/20 23:00 05/04/20 01:00 Levaquin IV Infused Q24H [facility] Infusion Levetiracetam 1,000 mg in 100 mls @ 400 mls/hr 05/02/20 18:00 05/04/20 06:37 Keppra IV Infused Q12H [facility] Infusion Insulin Human Lispro 0 unit 05/04/20 16:30 Insulin Lispro 100 Unit/Ml 3 Ml Vial SUBCUT QIDACHS [facility] Protocol Lisinopril 10 mg 05/05/20 09:00 Lisinopril 10 Mg Tablet PO DAILY [facility] Protocol Metoprolol Tartrate 75 mg 05/04/20 21:00 Metoprolol Tartrate 50 Mg Tablet PO BID [facility] Protocol Home Medications Medication Instructions Recorded Confirmed Last Taken Type apixaban [Eliquis] 5 mg PO BID 05/04/20 05/04/20 Unknown History aspirin 81 mg PO DAILY 05/04/20 05/04/20 Unknown History atorvastatin 80 mg PO DAILY 05/04/20 05/04/20 Unknown History diltiazem HCl 120 mg PO DAILY 05/04/20 05/04/20 Unknown History gabapentin 1,200 mg PO BEDTIME 05/04/20 05/04/20 Unknown History gabapentin 800 mg PO TID 05/04/20 05/04/20 Unknown History lisinopril 10 mg PO DAILY 05/04/20 05/04/20 Unknown History metformin 1,000 mg PO BID 05/04/20 05/04/20 Unknown History metoprolol tartrate 75 mg PO BID 05/04/20 05/04/20 Unknown History quetiapine 50 mg PO BID 05/04/20 05/04/20 Unknown History quetiapine 400 mg PO BEDTIME 05/04/20 05/04/20 Unknown History Physical Exam Vital Signs: Vital Signs: Last Vital Signs Temp 97.8 F 05/04/20 15:35 Pulse 75 05/04/20 15:35 Resp 19 05/04/20 15:35 BP 174/83 H 05/04/20 15:35 Pulse Ox 93 05/04/20 15:35 Body Mass Index 37.0 Const: General: cooperative, comfortable, no acute distress, well developed, alert and awake Nutritional Appearance: well nourished Orientation/consciousness: oriented to person, oriented to place and oriented to time Limitations: no limitations HENMT: Head: Yes normal to inspection, Yes normocephalic and Yes atraumatic Ears: hearing grossly normal bilaterally General nose exam: Normal external nose present Face and sinus: Yes normal facial exam Mouth: Normal oral and palatal mucosa present Eyes: General: appearance normal, both eyes and all related structures Visual Soares: normal visual soares by confrontation Alignment and Position: alignment normal Periorbital: periorbital findings normal Eyelids: Yes eyelids normal Conjunctivae: conjunctivae normal Sclerae: sclerae normal Corneas: corneas normal Pupils: Equal, round and reactive pupils present and Pupil accommodation reflex normal EOM: EOMs intact bilaterally Direct Ophthalmoscopy: normal light reflex Neck: Neck: Yes normal visual inspection, Yes full ROM and Yes no meningeal signs Thyroid: Thyroid normal Carotids: normal carotid upstroke and bounding pulses Chest: Chest palpation & inspection: normal inspection of the chest Resp: Effort & Inspection: normal respiratory effort Auscultation: clear to auscultation bilaterally Cardio: Rate: regular rate Rhythm: regular rhythm Heart sounds: S1 normal heart sound present and S2 normal heart sound present Peripheral pulses: Peripheral pulses 2+ throughout GI: Inspection: Yes normal to inspection Percussion: Yes normal to p ercussion Auscultation: normal bowel sounds Rectal Exam - Male: Yes deferred Back/Spine/Pelvis: Cervical Spine: normal cervical lordosis and cervical ROM normal Thoracic/Lumbar Spine: thoracic and lumbar spine normal to inspection Skin: General skin exam: no rashes or lesions noted Neuro: Other: Weakness in her left shoulder abduction and mild symmetrical proximal weakness in the lower extremities General: oriented to person, oriented to place, oriented to time, gait normal, tone normal, moves all extremities, Normal light touch and pain sensation, no meningeal signs, no focal motor deficits, CN's II-XI intact bilaterally, normal sensation to monofilament and deep tendon reflexes 2+ bilaterally Cranial nerves: Yes CN's II-XII intact bilaterally, Yes Equal, round and reactive pupils present, Yes Bilaterally intact EOM present, Yes Nystagmus not present, Yes Normal facial strength present, Yes Midline tongue present, Yes Normal gag reflex present, Yes Symmetric palate elevation present, Yes Normal hearing present and Yes Ability to bilaterally rotate head present Cognition (Neuro): normal cognition Speech: Other speech findings present (Neuro) Gait exam (Neuro): Normal gait present Motor exam (neuro): Pronator motor function not present, no tremor noted, no asterixis, Motor fasciculations not present, Normal motor muscle tone present throughout and Motor abnormalities not present Sensory Exam: Bilaterally intact graphesthesia Deep tendon reflexes (DTR's): Right triceps reflex intensity grade: 2+, Left triceps reflex intensity grade: 2+, Rt Biceps (C5, C6): 2+, Left biceps reflex intensity grade: 2+, Right brachioradialis reflex intensity grade: 2+, Left brachioradialis reflex intensity grade: 2+, Right patellar reflex intensity grade: 2+, Left patellar reflex intensity grade: 2+, Right ankle reflex intensity grade: 2+ and Left ankle reflex intensity grade: 2+ Plantar Reflex Responses: downgoing: right, left and bilateral Coordination: [id number] test normal and [id number] test normal Pupils: Normal pupillary reactivity/response: bilateral Extrem: General: Yes normal to inspection, Yes normal exam except as noted and Yes no pedal edema Psych: Appearance: grossly normal Mental Status: mental status grossly normal Speech and movement: Normal speech and movement present and Clear speech present Affect: normal affect Attitude: cooperative Thought process: Normal thought process present Results Labs CBC & Chem 7: 05/03/20 05:31 05/03/20 05:31 Microbiology Microbiology Results: Microbiology 05/01/20 23:08 Blood - Venous Blood Culture - Preliminary No growth after 48 hours. 05/01/20 23:08 Blood - Venous Blood Culture - Preliminary No growth after 48 hours. Assessment and Plan (1) Seizure: Problem details: History of remote seizures in the 1980s. Possibly posttraumatic. Probable seizure in the emergency room Status: Acute No further seizures. Recommend continuing Keppra 500 mg by mouth twice a day for 6-12 months and then taper off (2) Acute respiratory failure with hypoxia and hypercarbia: Status: Acute (3) CVA (cerebral vascular accident): Problem details: Old area of encephalomalacia in the right basal ganglia and frontal region possibly stroke versus traumatic sequelae Status: Acute
[2020-05-04 16:38] LABS: Glucose, Whole Blood 91 mg/dL (60-115)
[2020-05-04 20:20] LABS: Glucose, Whole Blood 126 mg/dL (60-115)
[2020-05-04] MEDS: Apixaban 5 MG TABLET PO (20:20)
[2020-05-04] MEDS: Metoprolol Tartrate 50 MG TABLET 75 MG PO (20:21)
[2020-05-04 21:04] LABS: Anion Gap 12 (12-20); Blood Urea Nitrogen 21 mg/dL (9-16); Carbon Dioxide 27 mmol/L (22-29); Chloride 105 mmol/L (96-108); Creatinine Clr Calc Pharmacy 106.7; Estimated Glomerular Filt Rate > 60; Glucose Random 131 mg/dL (60-115); Sodium 140 mmol/L (135-145)
[2020-05-04 21:14] LABS: Calcium 8.8 mg/dL (8.4-10.2)
[2020-05-04] MEDS: levoFLOXacin/D5W 750 MG/150 ML PIGGYBACK 100 MG IV (22:49)
[2020-05-05] VITALS: BP 143/74; PULSE 72; RESP 18; TEMP 36.3; O2SAT 91
[2020-05-05 04:00] VITALS: BP 158/81; PULSE 74; RESP 18; TEMP 36.4; O2SAT 91
[2020-05-05] MEDS: levETIRAcetam in NaCl (iso-os) 1,000 MG/100 ML PIGGYBACK 400 MG IV (05:54)
[2020-05-05 06:00] VITALS: BMI 37.0
[2020-05-05 06:58] LABS: MANUAL DIFF FLAG NO
[2020-05-05 07:05] LABS: Basophils Percent Auto 0.4 % (0-2); Eosinophils Absolute Auto 0.2 X10*3/uL (0.0-0.4); Eosinophils Percent Auto 3.1 % (0-4); Hematocrit 40.6 % (42-52); Hemoglobin 13.2 g/dl (14.0-18.0); Imm Gran Abs Auto 0.01 X10*3/uL (0.00-0.03); Imm Gran Pct Auto 0.2 % (0.0-0.4); Lymphocytes Absolute Auto 1.1 X10*3/uL (1.2-4.9); Lymphocytes Percent Auto 18.9 % (20-40); Mean Corpuscular HGB Conc 32.5 g/dl (31.0-36.0); Mean Corpuscular Hemoglobin 29.1 pg (27.0-33.0); Mean Corpuscular Volume 89.6 fL (80-98); Monocytes Absolute Auto 0.5 X10*3/uL (0.1-1.2); Monocytes Percent Auto 8.4 % (2-11); Neutrophils Absolute Auto 3.9 X10*3/uL (2.0-8.3); Platelet Count 167 X10*3/uL (160-400); Red Blood Count 4.53 X10*6/uL (4.60-5.80); Red Cell Distribution Width 13.9 % (11.0-16.0); White Blood Count 5.6 X10*3/uL (4.8-10.8)
[2020-05-05 07:15] VITALS: BP 158/72; PULSE 61; RESP 18; TEMP 36.2; O2SAT 94
[2020-05-05 07:16] LABS: Glucose, Whole Blood 156 mg/dL (60-115)
[2020-05-05 07:36] LABS: Anion Gap 13 (12-20); Blood Urea Nitrogen 16 mg/dL (9-16); Calcium 8.4 mg/dL (8.4-10.2); Carbon Dioxide 26 mmol/L (22-29); Chloride 105 mmol/L (96-108); Creatinine Clr Calc Pharmacy 118.3; Estimated Glomerular Filt Rate > 60; Glucose Random 159 mg/dL (60-115); Sodium 140 mmol/L (135-145)
[2020-05-05] MEDS: Insulin Lispro 100 UNIT/ML 3 ML VIAL SUBCUT (07:48)
[2020-05-05] MEDS: lisinopriL 10 MG TABLET PO (07:49)
[2020-05-05] MEDS: Atorvastatin Calcium 80 MG TABLET PO (07:49)
[2020-05-05] MEDS: Metoprolol Tartrate 50 MG TABLET 75 MG PO (07:50)
[2020-05-05] MEDS: Apixaban 5 MG TABLET PO (07:52)
[2020-05-05] MEDS: Aspirin Enteric Coated 81 MG TABLET.DR PO (07:52)
[2020-05-05] MEDS: Gabapentin 400 MG CAPSULE 800 MG PO ×2 (07:52→14:03)
[2020-05-05] MEDS: dilTIAZem HCL CD 120 MG CAP.ER.DEG PO (07:52)
[2020-05-05] MEDS: Albuterol/Iprat 2.5/0.5MG 3 ML AMPUL.NEB INHALE ×2 (08:37→11:05)
[2020-05-05 08:38] VITALS: PULSE 74; O2SAT 95
--- NOTE | 2020-05-05 10:25 | HO.PM.IMPN ---
Subjective Subjective Date of Service: 05/05/20 Interval History: f/u seizure/respiratory failure requiring intubation No shortness of breath. Soreness improved. No complaints today No overnight events Review of Systems Review of Systems: Yes all other systems are reviewed and are negative Constitutional Constitutional: Denies chills and Denies fever(s) Cardiovascular Cardiovascular: Denies chest pain Respiratory Respiratory: Denies cough Gastrointestinal Gastrointestinal: Denies abdominal pain Physical Exam Vital Signs: Vital Signs: Last Vital Signs Temp 97.2 F 05/05/20 07:15 Pulse 74 05/05/20 08:38 Resp 18 05/05/20 07:15 BP 158/72 H 05/05/20 07:15 Pulse Ox 94 05/05/20 07:15 Body Mass Index 37.0 Const: General: cooperative, comfortable, no acute distress, alert and awake Nutritional Appearance: overweight Orientation/consciousness: patient oriented x3 HENMT: Head: Yes normocephalic and Yes atraumatic Eyes: Sclerae: sclerae normal Chest: Chest palpation & inspection: normal inspection of the chest Resp: Effort & Inspection: normal respiratory effort and no respiratory distress Auscultation: clear to auscultation bilaterally Cardio: Rate: regular rate Rhythm: regular rhythm GI: Palpation (GI): Soft to palpation and nontender Skin: General skin exam: no rashes or lesions noted Neuro: General: patient oriented x3 Cranial nerves: Yes CN's II-XII intact bilaterally and Yes Bilaterally intact EOM present Extrem: General: Yes normal to inspection Objective Data Current Medications Generic Name Dose Route Start Last Admin Trade Name Freq PRN Reason Stop Dose Admin Acetaminophen 650 mg 05/03/20 23:26 05/04/20 08:15 Acetaminophen 325 Mg Tablet PO 650 mg Q6H PRN Administration Pain, Moderate (Pain Scale 4-6 Albuterol/Ipratropium 3 ml 05/04/20 16:00 05/05/20 08:37 Albuterol/Iprat 2.5/0.5mg 3 Ml Ampul.Neb INHALE 3 ml RQ4H WHILE AWAKE [facility] Administration Apixaban 5 mg 05/04/20 21:00 05/05/20 07:52 Apixaban 5 Mg Tablet PO 5 mg BID [facility] Administration Aspirin 81 mg 05/05/20 09:00 05/05/20 07:52 Aspirin Enteric Coated 81 Mg Tablet. PO 81 mg DAILY [facility] Administration Atorvastatin Calcium 80 mg 05/05/20 09:00 05/05/20 07:49 Atorvastatin Calcium 80 Mg Tablet PO 80 mg DAILY [facility] Administration Diltiazem HCl 120 mg 05/05/20 09:00 05/05/20 07:52 Diltiazem Hcl Cd 120 Mg Cap.Er.Deg PO 120 mg DAILY [facility] Administration Protocol Gabapentin 800 mg 05/04/20 15:00 05/05/20 07:52 Gabapentin 400 Mg Capsule PO 800 mg TID [facility] Administration Levofloxacin 750 mg in 150 mls @ 100 mls/hr 05/01/20 23:00 05/05/20 01:04 Levaquin IV Infused Q24H [facility] Infusion Levetiracetam 1,000 mg in 100 mls @ 400 mls/hr 05/02/20 18:00 05/05/20 06:25 Keppra IV Infused Q12H [facility] Infusion Insulin Human Lispro 0 unit 05/04/20 16:30 05/05/20 07:48 Insulin Lispro 100 Unit/Ml 3 Ml Vial SUBCUT 2 unit QIDACHS [facility] Administration Protocol Lisinopril 10 mg 05/05/20 09:00 05/05/20 07:49 Lisinopril 10 Mg Tablet PO 10 mg DAILY [facility] Administration Protocol Metoprolol Tartrate 75 mg 05/04/20 21:00 05/05/20 07:50 Metoprolol Tartrate 50 Mg Tablet PO 75 mg BID [facility] Administration Protocol Labs CBC & Chem 7: 05/05/20 06:17 05/05/20 06:17 Microbiology Microbiology Results: Microbiology 05/01/20 23:08 Blood - Venous Blood Culture - Preliminary No growth after 48 hours. 05/01/20 23:08 Blood - Venous Blood Culture - Preliminary No growth after 48 hours. Assessment and Plan (1) Acute respiratory failure with hypoxia: Status: Acute (2) COPD (chronic obstructive pulmonary disease): Status: Acute (3) Seizure: Problem details: History of remote seizures in the 1980s. Possibly posttraumatic. Probable seizure in the emergency room Status: Acute Assessment and Plan: 60-year-old gentleman with underlying history of CAD s/p NSTEMI in March of 2019, AFib on Eliquis, diabetes mellitus, COPD, sleep apnea, obesity admitted on 05/01/2020 after development of alteration of mental status, seizure, pulmonary aspiration, and acute hypoxic respiratory failure shortly after the 1st dose of COVID-19 Pfizer vaccine. Patient emergently intubated in the emergency room (difficult intubation), had CT head obtained that showed no acute infarcts, and was transferred to intensive care unit, extubated 05/03 and downgraded to intermediate care unit. Acute hypoxic and hypercapnic respiratory failure r/t aspiration in setting of seizure weaned off oxygen -continue IV levaquin day 06/27 seizure Remote h/o closed brain injury and seizure in , previously on Dilantin per patient, d/c many years ago Brain CT showing multiple chronic infarcts, pt denies known history of cva ? tramatic sequelae seizure precautions Seen by neuro rec keppra 500 bid, EEG unremarkable Outpatient neurology followup No driving until neurology followup Aspiration pneumonia vs pneumonitis -IV levaquin day 06/27 -continue breathing treatments CAD EKG showing worsening t wave inversions -Cardiology consult -Continue ASA, statin, BB COPD No acute exacerbation -breathing treatments Thrombocytopenia Improved today echo from 05/02 The left ventricular systolic function is hyperdynamic. The visually estimated ejection fraction is >70%. There is moderate to severe LVH but imaging is limited. Also cannot rule out apical hypertrophy Atrial fibrillation -resume Eliquis, cardizem, metoprolol HTN. -resume lisinopril, metoprolol, cardizem DM Metformin on hold Change to diabetic diet -SSI, POCs prolonged QT Resolved KATERINA -CPAP dvt ppx - eliquis code status - full code this case was discussed with dr. puentes
[2020-05-05 11:04] VITALS: BP 123/68; PULSE 62; RESP 18; TEMP 36.3; O2SAT 92
[2020-05-05 11:05] LABS: Glucose, Whole Blood 149 mg/dL (60-115)
[2020-05-05 11:06] VITALS: PULSE 76; O2SAT 95
--- NOTE | 2020-05-05 11:09 | PC.NURSE ---
pt frequently walking and drinking coffee. at 1047 was noted to have burst of venturicular ectopy which lasted [address] Oh was notified. pt was asymtomatic. and monitor leads were intact
[2020-05-05 11:24] LABS: Magnesium 1.9 mg/dL (1.6-2.6)
--- NOTE | 2020-05-05 12:00 | CA_ITS ---
Transthoracic Echocardiogram Patient (Last, First, Middle): Paul Maxwell, Gender: Male Date of : 1960 Age: 60 Procedure Date: 05/05/2020 Procedure Type: Transthoracic Echocardiogram [place] [facility] [place]: 177.8 cm Weight: 117.03 kg BSA: 2.33 m2 Heart Rate: bpm Audit Specialist: THEO Referring MD: Jose Luis Salmon MD Symptoms: Anterolateral TWI, assess RWMA Study Quality: Fair Conclusions: - Limited echo. - No regional wall motion abnormalities noticed. Findings Procedure Information The patient receives contrast. Left Ventricle Normal left ventricular cavity size. The left ventricular systolic function is normal. The visually estimated ejection fraction is between 65-70%. There is no evidence of regional wall motion abnormalities. Diastolic function is indeterminate on the basis of available data. Updated in Other Vendor System with Status of Final Jose Luis Salmon MD electronically signed on 05/05/2020 6:33:40 PM with status of Final
--- NOTE | 2020-05-05 13:10 | P.DS_ITS ---
DS: Providers Provider Date of Service: 05/05/20 <BRITT Angel - Last Filed: 05/05/20 13:51> 05/05/20 <Leonides Oh MD - Last Filed: 05/05/20 16:13> Date of admission: 05/01/20 21:26 <BRITT Angel - Last Filed: 05/05/20 13:51> Primary care physician: BRITT Armstrong <BRITT Angel - Last Filed: 05/05/20 13:51> Consults: 05/02/20 09:24 Consult to Wound Care Provider Stat Consulting Provider: [facility] [place] [facility] Reason for consultation: ?maceration vs stage II to coccyx, wounds from home Has provider been notified: Yes 05/03/20 17:04 Consult Respiratory Therapy Routine Reason for consultation: low O2 and uses CPAP Has provider been notified: Yes 05/04/20 08:56 Consult to Neurology Routine Consulting Provider: [facility] Reason for consultation: ?new onset seizure Has provider been notified: No 05/04/20 16:45 Consult to Cardiology Routine Consulting Provider: Jose Luis Salmon Reason for consultation: abnormal ekg, h/o cad Has provider been notified: No <BRITT Angel - Last Filed: 05/05/20 13:51> DS: Diagnosis Discharge Diagnosis (1) Acute respiratory failure with hypoxia: Status: Acute <BRITT Angel - Last Filed: 05/05/20 13:51> (2) COPD (chronic obstructive pulmonary disease): Status: Acute <BRITT Angel - Last Filed: 05/05/20 13:51> (3) Seizure: Status: Acute <BRITT Angel - Last Filed: 05/05/20 13:51> Problem details: History of remote seizures in the 1980s. Possibly posttraumatic. Probable seizure in the emergency room <BRITT Angel - Last Filed: 05/05/20 13:51> (4) Aspiration into airway: Status: Acute <BRITT Angel - Last Filed: 05/05/20 13:51> (5) Pilonidal cyst of cleft: Status: Acute <BRITT Angel - Last Filed: 05/05/20 13:51> Problem details: no active disease - ok to use barrier cream <BRITT Angel - Last Filed: 05/05/20 13:51> DS: Medications Discharge Medications Home Medications: Home Medications Medication Instructions Recorded Confirmed apixaban [Eliquis] 5 mg PO BID 05/04/20 05/04/20 aspirin 81 mg PO DAILY 05/04/20 05/04/20 atorvastatin 80 mg PO DAILY 05/04/20 05/04/20 diltiazem HCl 120 mg PO DAILY 05/04/20 05/04/20 gabapentin 1,200 mg PO BEDTIME 05/04/20 05/04/20 gabapentin 800 mg PO TID 05/04/20 05/04/20 lisinopril 10 mg PO DAILY 05/04/20 05/04/20 metformin 1,000 mg PO BID 05/04/20 05/04/20 metoprolol tartrate 75 mg PO BID 05/04/20 05/04/20 quetiapine 50 mg PO BID 05/04/20 05/04/20 quetiapine 400 mg PO BEDTIME 05/04/20 05/04/20 <BRITT Angel - Last Filed: 05/05/20 13:51> DS: Summary Hospital Course Hospital Course: 60-year-old gentleman with underlying history of CAD s/p NSTEMI in March of 2019, AFib on Eliquis, diabetes mellitus, COPD, sleep apnea, obesity admitted on 05/01/2020 after development of alteration of mental status, seizure, pulmonary aspiration, and acute hypoxic respiratory failure shortly af ter the 1st dose of COVID-19 Pfizer vaccine. Patient emergently intubated in the emergency room (difficult intubation), had CT head obtained that showed no acute infarcts, and was transferred to intensive care unit. He was extubated 05/03 and downgraded to intermediate care unit. Acute hypoxic and hypercapnic respiratory failure. Aspiration pneumonia vs pneumonitis secondary to pulmonary aspiration on the background of a seizure requiring intubation and ventilatory support. Patient was intubated in ED and transferred to the ICU. He was extubated on hospital day #3. He was gradually weaned off oxygen and is currently saturating in the mid-90s on room air. He was treated with IV levaquin and has completed his course of antibiotics. Seizure Patient has remote h/o closed brain injury and seizure in 1980s, previously on Dilantin which was discontinued many years ago Brain CT showing multiple chronic infarcts, pt denies known history of cva ?traumatic sequelae. Seen by neurology who recommends discharging patient on keppra 500 bid. EEG was done and was unremarkable. Outpatient neurology followup. No driving, taking bath or swimming alone until neurology followup. CAD/h/o hypertrophic cardiomyopathy Patient had echo which showed The left ventricular systolic function is hyperdynamic. The visually estimated ejection fraction is >70%. There is moderate to severe LVH but imaging is limited. Also cannot rule out apical hypertrophy. He has been seen at [facility] in the past and underwent assessment and was told that currently does not need any intervention done. He was seen in consultation by Cardiology who recommended outpatient follow-up with patient's gallery intern. He was continued on his home dose of aspirin, statin, and beta mike. Buttock wound Patient noted to have buttock wound. Patient was seen by wound care diagnosed patient to have pilonidal cyst without drainage or fluctuance. No further intervention was required. COPD No acute exacerbation For chronic medical conditions such as Atrial fibrillation, HTN and diabetes, no changes were made to home medications. He was continued on CPAP for KATERINA. <BRITT Angel - Last Filed: 05/05/20 13:51> Time Spent with Patient Time attestation: Total time spent providing and/or coordinating discharge services: <BRITT Angel - Last Filed: 05/05/20 13:51> Discharge coordination time: Greater than 30 minutes <BRITT Angel - Last Filed: 05/05/20 13:51> Physical Exam Vital Signs: Vital Signs: Last Vital Signs Temp 97.3 F 05/05/20 11:04 Pulse 76 05/05/20 11:06 Resp 18 05/05/20 11:04 BP 123/68 05/05/20 11:04 Pulse Ox 92 05/05/20 11:04 Body Mass Index 37.0 <BRITT Angel Last Filed: 05/05/20 13:51> Const: General: cooperative, comfortable, no acute distress, alert and awake <BRITT Angel Last Filed: 05/05/20 13:51> Nutritional Appearance: overweight <BRITT Angel - Last Filed: 05/05/20 13:51> Orientation/consciousness: patient oriented x3 <BRITT Angel - Last Filed: 05/05/20 13:51> HENMT: Head: Yes normocephalic and Yes atraumatic <BRITT nAgel - Last Filed: 05/05/20 13:51> Eyes: Sclerae: sclerae normal <BRITT Angel - Last Filed: 05/05/20 13:51> Chest: Chest palpation & inspection: normal inspection of the chest <BRITT Angel - Last Filed: 05/05/20 13:51> Resp: Effort & Inspection: normal respiratory effort and no respiratory distress <BRITT Angel - Last Filed: 05/05/20 13:51> Auscultation: clear to auscultation bilaterally <BRITT Angel - Last Filed: 05/05/20 13:51> Cardio: Rate: regular rate <BRITT Angel - Last Filed: 05/05/20 13:51> Rhythm: regular rhythm <BRITT Angel - Last Filed: 05/05/20 13:51> GI: Palpation (GI): Soft to palpation and nontender <BRITT Angel - Last Filed: 05/05/20 13:51> Skin: General skin exam: no rashes or lesions noted <BRITT Angel - Last Filed: 05/05/20 13:51> Neuro: General: patient oriented x3 <BRITT Angel - Last Filed: 05/05/20 13:51> Cranial nerves: Yes CN's II-XII intact bilaterally and Yes Bilaterally intact EOM present <BRITT Angel - Last Filed: 05/05/20 13:51> Extrem: General: Yes normal to inspection <BRITT Angel - Last Filed: 05/05/20 13:51> DS: Data Data Completed and Pending Labs on day of discharge: Laboratory Results - last 24 hr 05/04/20 05/04/20 05/04/20 16:31 20:17 20:30 WBC RBC Hgb Hct MCV MCH MCHC RDW Plt Count MPV Immature Gran % (Auto) Neut % (Auto) Lymph % (Auto) [place] % (Auto) Eos % (Auto) Baso % (Auto) Lymph # (Auto) [place] # (Auto) Eos # (Auto) Baso # (Auto) Abs Immat Gran (auto) Absolute Neuts (auto) Absolute Nucleated RBC Nucleated RBC % (auto) Sodium 140 Potassium 4.0 Chloride 105 Carbon Dioxide 27 Anion Gap 12 BUN 21 H Creatinine 0.92 Estim Creat Clear Calc 106.7 Estimated GFR > 60 POC Glucose 91 126 H Random Glucose 131 H Calcium 8.8 D Magnesium 05/05/20 05/05/20 05/05/20 06:17 06:17 07:12 WBC 5.6 RBC 4.53 L Hgb 13.2 L Hct 40.6 L MCV 89.6 MCH 29.1 MCHC 32.5 RDW 13.9 Plt Count 167 MPV 11.0 Immature Gran % (Auto) 0.2 Neut % (Auto) 69.0 Lymph % (Auto) 18.9 L [place] % (Auto) 8.4 Eos % (Auto) 3.1 Baso % (Auto) 0.4 Lymph # (Auto) 1.1 L [place] # (Auto) 0.5 Eos # (Auto) 0.2 Baso # (Auto) 0.0 Abs Immat Gran (auto) 0.01 Absolute Neuts (auto) 3.9 Absolute Nucleated RBC 0.000 Nucleated RBC % (auto) 0.0 Sodium 140 Potassium 4.0 Chloride 105 Carbon Dioxide 26 Anion Gap 13 BUN 16 Creatinine 0.83 Estim Creat Clear Calc 118.3 Estimated GFR > 60 POC Glucose 156 H Random Glucose 159 H Calcium 8.4 Magnesium 1.9 05/05/20 11:00 WBC RBC Hgb Hct MCV MCH MCHC RDW Plt Count MPV Immature Gran % (Auto) Neut % (Auto) Lymph % (Auto) [place] % (Auto) Eos % (Auto) Baso % (Auto) Lymph # (Auto) [place] # (Auto) Eos # (Auto) Baso # (Auto) Abs Immat Gran (auto) Absolute Neuts (auto) Absolute Nucleated RBC Nucleated RBC % (auto) Sodium Potassium Chloride Carbon Dioxide Anion Gap BUN Creatinine Estim Creat Clear Calc Estimated GFR POC Glucose 149 H Random Glucose Calcium Magnesium Preliminary micro results at discharge 05/01/20 23:08 Blood Culture - Preliminary Blood - Venous No growth after 48 hours. 05/01/20 23:08 Blood Culture - Preliminary Blood - Venous No growth after 48 hours. <BRITT Angel - Last Filed: 05/05/20 13:51> Discharge Plan Discharge Anticipated Discharge Date/Time: 05/05/20 14:48 <BRITT Angel - Last Filed: 05/05/20 13:51> Patient Disposition: Home, Self-Care <BRITT Angel - Last Filed: 05/05/20 13:51> Referrals: Casey Soriano PA [Primary Care Provider] - <BRITT Angel - Last Filed: 05/05/20 13:51> Discharge Medications: New levetiracetam [Keppra] 500 mg tablet 500 mg PO BID 30 Days Qty: 60 RF: 0 Continued atorvastatin 80 mg Tablet 80 mg PO DAILY RF: 0 gabapentin 400 mg Capsule 800 mg PO TID RF: 0 aspirin 81 mg Tablet,Delayed Release (Dr/Ec) 81 mg PO DAILY RF: 0 diltiazem HCl 120 mg Capsule,Extended Release 24 Hr 120 mg PO DAILY RF: 0 lisinopril 10 mg Tablet 10 mg PO DAILY RF: 0 metoprolol tartrate 50 mg Tablet 75 mg PO BID RF: 0 metformin 500 mg Tablet Extended Release 24 Hr 1,000 mg PO BID RF: 0 Eliquis 5 mg Tablet 5 mg PO BID RF: 0 quetiapine 50 mg Tablet 50 mg PO BID RF: 0 quetiapine 400 mg Tablet 400 mg PO BEDTIME RF: 0 gabapentin 400 mg Capsule 1,200 mg PO BEDTIME RF: 0 <BRITT Angel - Last Filed: 05/05/20 13:51> Discharge Orders: Discharge Order (Routine); Ordered 05/05/20 Ordered By: Maureen Peñaloza <BRITT Angel - Last Filed: 05/05/20 13:51> Activity on Discharge: As tolerated <BRITT Angel - Last Filed: 05/05/20 13:51> As tolerated <Leonides Oh MD - Last Filed: 05/05/20 16:13> Stand Alone Forms: Patient Portal Discharge page <BRITT Angel - Last Filed: 05/05/20 13:51> Care Plan Goals: See Below <BRITT Angel - Last Filed: 05/05/20 13:51> Health Concerns: Seizure Respiratory failure - resolved. <BRITT Angel - Last Filed: 05/05/20 13:51> Plan of Treatment: Seizure - You have been started on a new medication for seizures called Keppra. You should take this medication as prescribed. You should not drive, take a bath or go swimming alone until follow up with neurology. Please call to make a follow up appointment. Please call your gallery intern to make an appointment for follow up. Please call your PCP to make an appointment for follow up. <BRITT Angel - Last Filed: 05/05/20 13:51> Discharge Date/Time: 05/05/20 14:44 <BRITT Angel - Last Filed: 05/05/20 13:51>
--- NOTE | 2020-05-05 13:23 | PM.CNCAR ---
History of Present Illness History of Present Illness Date of Service: 05/05/20 Requesting physician: Maureen Peñaloza Chief complaint: T wave inversions on ECG Narrative: 60-year-old gentleman who follows with cardiology in not them 10. He has background history of COPD, CVA, seizure disorder and hypertrophic cardiomyopathy. It appears he was referred [facility] in the past and underwent assessment when he was told that currently does not need any intervention done. He has background of paroxysmal atrial fibrillation for which she underwent ablation last year. He also has known coronary artery disease with previous circumflex OM PCI and severe ISR for which he underwent PCI in March 2019. He had COVID vaccine given to him and became very sick and came respiratory distress. He has recovered from that at this stage. He had anterolateral T-wave inversions which looked more pronounced on repeat EKGs. He denies any chest discomfort or shortness of breath. He has been walking around the hallways without any symptoms. While walking he did have some PVCs noticed on telemetry. No chest pain or shortness of breath present right now. Review of Systems Review of Systems: Yes all other systems are reviewed and are negative [facility] Past Medical History Medical History (Updated 05/05/20 @ 13:34 by Jose Luis Salmon MD) Atrial fibrillation CAD (coronary artery disease) COPD (chronic obstructive pulmonary disease) Diabetes mellitus NSTEMI (non-ST elevated myocardial infarction) Pacemaker Sleep apnea Family History Family history: reviewed and not pertinent Surgical History Surgical History (Updated 05/02/20 @ 00:25 by John Mejias) H/O cardiac catheterization Social History Social History (Updated 05/02/20 @ 00:30 by John Mejias) Household Members: None Housing: Other Housing Other:: mobile home Do you presently have visiting nurse or other home services: No Smoking Status: Current every day smoker Tobacco Type: Cigarette Use of substances other than those prescribed or required for medical reasons: No Currently Displaying Signs/Symptoms of Drug Intoxication Withdrawal: No Have you been hit, kicked, punched, or otherwise hurt by someone within the past year? If so, by whom?: No Do you feel safe in your current relationship?: No Current Relationship Is there a partner from a previous relationship who is making you feel unsafe now?: No Are you made to feel afraid or neglected: No Advance Directives: No Advance Directives Information Provided: No Do you have thoughts of harming others: None Do you have a plan to hurt others: No Plan Recently lost weight without trying: No service: Yes Current occupational status: retired Meds Allergies Allergy/AdvReac Type Severity Reaction Status Date / Time bee pollen [bee stings] Allergy Severe Anaphylaxis Verified 05/03/20 09:16 penicillin G [Penicillin G] Allergy Mild Hives Verified 05/03/20 09:15 Active Medications: Current Medications Generic Name Dose Route Start Last Admin Trade Name Freq PRN Reason Stop Dose Admin Acetaminophen 650 mg 05/03/20 23:26 05/04/20 08:15 Acetaminophen 325 Mg Tablet PO 650 mg Q6H PRN Administration Pain, Moderate (Pain Scale 4-6 Albuterol/Ipratropium 3 ml 05/04/20 16:00 05/05/20 11:05 Albuterol/Iprat 2.5/0.5mg 3 Ml Ampul.Neb INHALE 3 ml RQ4H WHILE AWAKE NIALL Administration Apixaban 5 mg 05/04/20 21:00 05/05/20 07:52 Apixaban 5 Mg Tablet PO 5 mg BID NIALL Administration Aspirin 81 mg 05/05/20 09:00 05/05/20 07:52 Aspirin Enteric Coated 81 Mg Tablet.Dr PO 81 mg DAILY NIALL Administration Atorvastatin Calcium 80 mg 05/05/20 09:00 05/05/20 07:49 Atorvastatin Calcium 80 Mg Tablet PO 80 mg DAILY NIALL Administration Diltiazem HCl 120 mg 05/05/20 09:00 05/05/20 07:52 Diltiazem Hcl Cd 120 Mg Cap.Er.Deg PO 120 mg DAILY [facility] Administration Protocol Gabapentin 800 mg 05/04/20 15:00 05/05/20 07:52 Gabapentin 400 Mg Capsule PO 800 mg TID [facility] Administration Levofloxacin 750 mg in 150 mls @ 100 mls/hr 05/01/20 23:00 05/05/20 01:04 Levaquin IV Infused Q24H [facility] Infusion Insulin Human Lispro 0 unit 05/04/20 16:30 05/05/20 11:20 Insulin Lispro 100 Unit/Ml 3 Ml Vial SUBCUT Not Given QIDACHS [facility] Protocol Levetiracetam 500 mg 05/05/20 21:00 Levetiracetam 500 Mg Tablet PO BID [facility] Lisinopril 10 mg 05/05/20 09:00 05/05/20 07:49 Lisinopril 10 Mg Tablet PO 10 mg DAILY [facility] Administration Protocol Metoprolol Tartrate 75 mg 05/04/20 21:00 05/05/20 07:50 Metoprolol Tartrate 50 Mg Tablet PO 75 mg BID [facility] Administration Protocol Home Medications Medication Instructions Recorded Confirmed Last Taken Type apixaban [Eliquis] 5 mg PO BID 05/04/20 05/04/20 Unknown History aspirin 81 mg PO DAILY 05/04/20 05/04/20 Unknown History atorvastatin 80 mg PO DAILY 05/04/20 05/04/20 Unknown History diltiazem HCl 120 mg PO DAILY 05/04/20 05/04/20 Unknown History gabapentin 1,200 mg PO BEDTIME 05/04/20 05/04/20 Unknown History gabapentin 800 mg PO TID 05/04/20 05/04/20 Unknown History lisinopril 10 mg PO DAILY 05/04/20 05/04/20 Unknown History metformin 1,000 mg PO BID 05/04/20 05/04/20 Unknown History metoprolol tartrate 75 mg PO BID 05/04/20 05/04/20 Unknown History quetiapine 50 mg PO BID 05/04/20 05/04/20 Unknown History quetiapine 400 mg PO BEDTIME 05/04/20 05/04/20 Unknown History Physical Exam Vital Signs: Vital Signs: Last Vital Signs Temp 97.3 F 05/05/20 11:04 Pulse 76 05/05/20 11:06 Resp 18 05/05/20 11:04 BP 123/68 05/05/20 11:04 Pulse Ox 92 05/05/20 11:04 Body Mass Index 37.0 GENERAL APPEARANCE: in no acute distress, obese. HEENT: unremarkable. HEAD: normocephalic, atraumatic. NECK/THYROID: no carotid bruit, no jugular venous distention. SKIN: no suspicious lesions, warm and dry. HEART: Systolic murmur left parasternal border, regular rate and rhythm, S1, S2 normal. LUNGS: clear to auscultation bilaterally. ABDOMEN: normal, bowel sounds present, soft, nontender, nondistended. EXTREMITIES: no clubbing, cyanosis, or edema. PERIPHERAL PULSES: equal. NEUROLOGIC: nonfocal, alert and oriented. PSYCH: mood/affect full range. Results Labs and Meds Result diagrams: 05/05/20 06:17 05/05/20 06:17 Lab results: Laboratory Results - last 24 hr 05/04/20 05/04/20 05/04/20 16:31 20:17 20:30 WBC RBC Hgb Hct MCV MCH MCHC RDW Plt Count MPV Immature Gran % (Auto) Neut % (Auto) Lymph % (Auto) [place] % (Auto) Eos % (Auto) Baso % (Auto) Lymph # (Auto) [place] # (Auto) Eos # (Auto) Baso # (Auto) Abs Immat Gran (auto) Absolute Neuts (auto) Absolute Nucleated RBC Nucleated RBC % (auto) Sodium 140 Potassium 4.0 Chloride 105 Carbon Dioxide 27 Anion Gap 12 BUN 21 H Creatinine 0.92 Estim Creat Clear Calc 106.7 Estimated GFR > 60 POC Glucose 91 126 H Random Glucose 131 H Calcium 8.8 D Magnesium 05/05/20 05/05/20 05/05/20 06:17 06:17 07:12 WBC 5.6 RBC 4.53 L Hgb 13.2 L Hct 40.6 L MCV 89.6 MCH 29.1 MCHC 32.5 RDW 13.9 Plt Count 167 MPV 11.0 Immature Gran % (Auto) 0.2 Neut % (Auto) 69.0 Lymph % (Auto) 18.9 L [place] % (Auto) 8.4 Eos % (Auto) 3.1 Baso % (Auto) 0.4 Lymph # (Auto) 1.1 L [place] # (Auto) 0.5 Eos # (Auto) 0.2 Baso # (Auto) 0.0 Abs Immat Gran (auto) 0.01 Absolute Neuts (auto) 3.9 Absolute Nucleated RBC 0.000 Nucleated RBC % (auto) 0.0 Sodium 140 Potassium 4.0 Chloride 105 Carbon Dioxide 26 Anion Gap 13 BUN 16 Creatinine 0.83 Estim Creat Clear Calc 118.3 Estimated GFR > 60 POC Glucose 156 H Random Glucose 159 H Calcium 8.4 Magnesium 1.9 05/05/20 11:00 WBC RBC Hgb Hct MCV MCH MCHC RDW Plt Count MPV Immature Gran % (Auto) Neut % (Auto) Lymph % (Auto) [place] % (Auto) Eos % (Auto) Baso % (Auto) Lymph # (Auto) [place] # (Auto) Eos # (Auto) Baso # (Auto) Abs Immat Gran (auto) Absolute Neuts (auto) Absolute Nucleated RBC Nucleated RBC % (auto) Sodium Potassium Chloride Carbon Dioxide Anion Gap BUN Creatinine Estim Creat Clear Calc Estimated GFR POC Glucose 149 H Random Glucose Calcium Magnesium Imaging Radiologist's impression: Impressions Chest CTA 05/04/20 17:40 IMPRESSION: No pulmonary embolism. Significant improvement of the previous bilateral lower lobe consolidation. Minimal residual left lower lobe consolidation. Bronchial wall thickening can be seen with a small airways process such as asthma or atypical/viral infection. VTE: negative Assessment and Plan (1) Hypertrophic cardiomyopathy: Status: Acute (2) Abnormal EKG: Status: Acute (3) PAF (paroxysmal atrial fibrillation): Status: Acute 60-year-old gentleman with complex cardiovascular issues including coronary artery disease for which he underwent OM PCI in the past and developed diffuse ISR and presented with non ST elevation NV in March 2019 and underwent PCI to the obtuse marginal artery again. He has background of paroxysmal atrial fibrillation for which he has undergone ablation at [facility]. He has been followed at [facility] for the hypertrophic cardiomyopathy and was told reportedly that he does not in any interventions done. His EKG is abnormal and is likely abnormal due to underlying hypertrophic cardiomyopathy. He has no symptoms right now. He had some PVCs noticed on telemetry but no ventricular tachycardia or any concerning issues are seen. I think he can continue his metoprolol tartrate 75 mg twice a day. He should continue his Eliquis and aspirin given background of atrial fibrillation ablation and coronary disease. He will follow-up at [facility] with his digital media coordinator after discharge. Thank you for allowing me to participate in the care of your patient. Please feel free to contact me if you have any questions.
--- NOTE | 2020-05-05 14:30 | MHC.CM.PN ---
CM met with pt to confirm DC plan. Pt will DC home today with no services and has already arranged transportation. [facility] delivered.
== END 2020-05-05 14:44 | disposition home or self-care (01) | DRG 208 ==
LOC: HO.ED 21:43 → HO.EDOVER 21:45 → HO.ICU 22:26 → HO.IMC 05-03 13:37
PROVIDERS: Nurse Practitioner Family; Physician Assistant Medical; Registered Nurse Community Health; Admitting Provider Internal Medicine Pulmonary Disease; Emergency Provider Emergency Medicine; PCP Physician Assistant; Visit Provider Internal Medicine
DX: J69.0 Pneumonitis due to inhalation of food and vomit (principal); J96.01 Acute respiratory failure with hypoxia; J96.02 Acute respiratory failure with hypercapnia; I50.32 Chronic diastolic (congestive) heart failure; I42.2 Other hypertrophic cardiomyopathy; I25.10 Atherosclerotic heart disease of native coronary artery without angina pectoris; G40.909 Epilepsy, unspecified, not intractable, without status epilepticus; J44.9 Chronic obstructive pulmonary disease, unspecified; I25.2 Old myocardial infarction; I11.0 Hypertensive heart disease with heart failure; I48.0 Paroxysmal atrial fibrillation; E11.9 Type 2 diabetes mellitus without complications; G47.33 Obstructive sleep apnea (adult) (pediatric); L05.91 Pilonidal cyst without abscess; Z20.822 Contact with and (suspected) exposure to COVID-19; Z95.0 Presence of cardiac pacemaker; Z99.89 Dependence on other enabling machines and devices; Z88.0 Allergy status to penicillin; Z79.01 Long term (current) use of anticoagulants; Z79.82 Long term (current) use of aspirin; Z79.84 Long term (current) use of oral hypoglycemic drugs; Z79.899 Other long term (current) drug therapy
CPT/HCPCS: 36415; 36600; 70450; 71045; 71250; 71275; 74176; 80048; 80053; 80076; 82040; 82947; 83605; 83690; 83735; 83880; 84100; 84484; 85025; 87040; 87635; 93005; 93306; 93308; 94002; 94003; 94640; 94799; 95816; 96361; 96374; 99285; 99291; J0330; J1940; J1953; J1956; J2060; J3010; Q9957; Q9967